=== PATIENT | male | born 1955 | race Caucasian/White ===

== ENCOUNTER 2019-02-01 09:08 | Inpatient (IN) ==
--- OUTSIDE RECORDS SUMMARY | 2019-02-01 09:10 | External Medical Summary | Continuity of Care Document ---
:1955 Author Name Chon Elizabeth, Provider Address Unavailable Unavailable , Care Team Providers Name Role Phone Robert Mallory PA-C Unavailable [email or web address] NIKA Elizabeth Unavailable Unavailable FARHANA Unavailable Unavailable Unavailable Unavailable Unavailable Problems Hyponatremia (276.1) (E87.1) TAYO (acute kidney injury) (584.9) (N17.9) HTN (hypertension) (401.9) (I10) Dilated cardiomyopathy (425.4) (I42.0) Chronic combined systolic and diastolic congestive heart failure (428.42) (I50.42) A-fib (427.31) (I48.91) Hyperkalemia (276.7) (E87.5) Allergies and Adverse Reactions No Known Drug Allergies (Allergy) Medications Aspirin 81 MG Oral Tablet Delayed Release; TAKE 1 TABLET RACHID LY. Start: 30-Oct-2016 Refills: 0 Eliquis 5 MG Oral Tablet; TAKE 1 TABLET TWICE DAILY. Clara Bragg Start: 30-Oct-2016 Quantity: 180 Refills: 3 Procedures Procedures not documented Immunizations Immunizations not documented Social History - Smoking Status Current every day smoker Plan of Treatment Planned Observations Planned Goals not documented Results No Known Results Results not documented Encounters Appointment; Lasha Bragg M.D. 18-Mar-2018 11:45 Encounter Diagnosis: Problem not documented Appointment; Lasha Bragg M.D. 22-Jul-2017 10:15 Encounter Diagnosis: Problem not documented Appointment; Lasha Bragg M.D. 17-Jun-2017 10:00 Encounter Diagnosis: Problem not documented Appointment; Lasha Bragg M.D. 01-Jun-2017 10:00 Encounter Diagnosis: Problem not documented Appointment; Echo/Stress, Echo/Stress 18-May-2017 8:45 Encounter Diagnosis: Problem not documented
[2019-02-01] MEDS ORDERED: dilTIAZem HCl 5 MG/ML 5 ML VIAL IV STA ×4 (09:33→17:14)
[2019-02-01 09:43] LABS: Basophils # (auto) 0.02 K/uL (0-0.2); Basophils % (auto) 0.3 %; Eosinophils # (auto) 0.01 K/uL (0-0.5); Eosinophils % (auto) 0.2 %; Hematocrit (blood only) 50.1 % (42-52); Hemoglobin 16.8 g/dL (14.0-18.0); Lymphocytes % (auto) 23.6 %; Mean Corpuscular Hemoglobin 27.4 pg (25-34); Mean Corpuscular Hgb Conc 33.5 g/dL (32-36); Mean Corpuscular Volume 81.7 fL (80-100); Mean Platelet Volume 11.9 fL (7.4-10.4); Monocytes # (auto) 0.68 K/uL (0.11-0.59); Monocytes % (auto) 11.5 %; Neutrophils # (auto) 3.81 K/uL (1.4-6.5); Neutrophils % (auto) 64.4 %; Platelet Count 184 K/uL (130-400); RDW Standard Deviation 49.8 fL (36.4-46.3); Red Blood Count 6.13 M/uL (4.7-6.1); White Blood Count 5.92 K/uL (4.8-10.8)
[2019-02-01 09:58] LABS: Albumin Level 4.1 gm/dl (3.4-5.0); BUN Creatinine Ratio 15.7 (10-20); Calcium 9.4 mg/dl (8.5-10.1); Creatinine Clr Calc Pharmacy 77.1 ml/min; Est GFR (African American) 75.4; Magnesium 2.3 mg/dl (1.8-2.4); Potassium 3.8 mmol/L (3.5-5.1)
--- NOTE | 2019-02-01 09:58 | XRay Report ---
SINGLE VIEW CHEST CLINICAL HISTORY: Generalized weakness. FINDINGS: An AP, portable, upright chest radiograph is obtained. No prior studies are available for c omparison at the time of dictation. The examination is degraded by portable technique and patient rot ation. The heart is enlarged noting atherosclerotic calcification of the thoracic aorta. There is mil d pulmonary vascular congestion. Trace pleural effusions are suspected and there is bibasilar atelect asis. No pneumothorax is seen. The skeletal structures are osteopenic. The bony thorax is grossly int act. IMPRESSION: 1. Cardiomegaly with evidence of mild congestive failure. 2. Suspect trace pleural effusions. Electronically signed by: Jose Burrows M.D. 02/01/2019 9:57 AM
[2019-02-01 09:59] LABS: INR 1.2 (0.9-1.1); Partial Thromboplastin Ratio 1.1; Prothrombin Time 12.5 Seconds (9.0-12.0)
--- NOTE | 2019-02-01 10:07 | Emergency Department Note ---
Entered by Leonel Jordan acting as a scribe for History of Present Illness General Chief complaint: Cardiac Assessment Stated complaint: AFIB Source: patient History of Present Illness Provider complaint: Cardiac assessment Onset (ago): hour(s) (Just prior to arrival) Location: chest Severity: similar to prior episodes Pain Consistency: + constant Maximum Pain Intensity: 0 Relieved By: + none Exacerbated By: + other (Lying flat) Associated symptoms: + shortness of breath; no chest pain and no nausea/vomiting The patient is a 63 year old male who presents to the Emergency Room after being referred here by Dr. Sidhu for a cardiac workup following a visit in his office this morning where the patient showed constant Afib on the monitor. The patient states he originally went to see Dr. Sidhu because he could feel himself retaining fluid, which has happened in the past. The patient has a history of Afib but does not take any medications because of the way they make him feel. The patient is supposed to be on Eliquis and Metoprolol. The patient currently denies any chest pain, nausea or vomiting but does endorse shortness of breath, especially when he is lying flat. The patient does take Aspirin daily. He does not use alcohol but does smoke two packs per day. Home Medications Home Medications Medication Instructions Recorded Confirmed Type aspirin [Aspirin Childrens] 81 mg PO DAILY 02/01/19 02/01/19 History Allergies Allergy/AdvReac Type Severity Reaction Status Date / Time No Known Allergies Allergy Unverified 02/01/19 10:03 Past Med/Surg History Medical History Atrial fibrillation Family History Other Family history non-contributory Social History Preferred Language: Malian Communication Ability: Effective Email Producer Required: No Beliefs That Will Affect Care: None Current Living Situation: Spouse Feels Safe at Home: Yes Smoking Status: Heavy tobacco smoker Tobacco Type: cigarettes ; Cigarettes Per Day: 40 ; Second Hand Exposure: No ; Hx Alcohol Use: No Hx Substance Use: No Review of Systems See HPI for pertinent positives & negatives. and A total of 10 systems reviewed and were otherwise negative Physical Exam Vital Signs Vital Signs - 24 hr 02/01/19 09:08 02/01/19 09:11 02/01/19 09:30 Temperature 36.5 C Temperature Source Oral Sepsis Recent Fever Within 48 Hours No Sepsis New/Unexplained Change in Mental Status No Sepsis Action Taken by Nursing No Action Required Pulse Rate 169 H 148 H Pulse Rate [Apical] Pulse Rate from SpO2 Sensor Pulse Rhythm [Apical] Respiratory Rate 18 26 H Respiratory Effort / Characteristics Respiratory Depth Normal Respiratory Pattern Regular Blood Pressure 173/104 H Blood Pressure [Left Arm] Blood Pressure Mean 127 Blood Pressure Mean [Left Arm] Blood Pressure Position Sitting Blood Pressure Position [Left Arm] Pulse Oximetry 97 97 Oxygen Delivery Method Room Air Room Air 02/01/19 09:33 02/01/19 09:37 02/01/19 09:45 Temperature Temperature Source Sepsis Recent Fever Within 48 Hours Sepsis New/Unexplained Change in Mental Status Sepsis Action Taken by Nursing Pulse Rate 157 H 129 H Pulse Rate [Apical] 147 H Pulse Rate from SpO2 Sensor 155 H 128 H Pulse Rhythm [Apical] Respiratory Rate 23 27 H Respiratory Effort / Characteristics Respiratory Depth Respiratory Pattern Blood Pressure 176/122 H Blood Pressure [Left Arm] 176/122 H Blood Pressure Mean 140 Blood Pressure Mean [Left Arm] 140 Blood Pressure Position Blood Pressure Position [Left Arm] Pulse Oximetry 98 98 95 Oxygen Delivery Method Room Air 02/01/19 09:53 02/01/19 10:00 02/01/19 10:15 Temperature Temperature Source Sepsis Recent Fever Within 48 Hours Sepsis New/Unexplained Change in Mental Status Sepsis Action Taken by Nursing Pulse Rate 117 H 108 H 117 H Pulse Rate [Apical] 114 H Pulse Rate from SpO2 Sensor 122 H 105 H 122 H Pulse Rhythm [Apical] Respiratory Rate 37 H 23 21 Respiratory Effort / Characteristics Respiratory Depth Respiratory Pattern Blood Pressure 170/125 H 182/135 H 174/139 H Blood Pressure [Left Arm] 170/125 H Blood Pressure Mean 140 150 150 Blood Pressure Mean [Left Arm] 140 Blood Pressure Position Blood Pressure Position [Left Arm] Pulse Oximetry 96 96 91 Oxygen Delivery Method Room Air 02/01/19 10:30 02/01/19 10:34 02/01/19 10:45 Temperature Temperature Source Sepsis Recent Fever Within 48 Hours Sepsis New/Unexplained Change in Mental Status Sepsis Action Taken by Nursing Pulse Rate 102 H Pulse Rate [Apical] 115 H Pulse Rate from SpO2 Sensor 104 H 110 H Pulse Rhythm [Apical] Respiratory Rate 16 16 Respiratory Effort / Characteristics Respiratory Depth Respiratory Pattern Blood Pressure 174/137 H Blood Pressure [Left Arm] 174/137 H Blood Pressure Mean 149 Blood Pressure Mean [Left Arm] 149 Blood Pressure Position Blood Pressure Position [Left Arm] Pulse Oximetry 91 96 94 Oxygen Delivery Method Room Air 02/01/19 10:46 02/01/19 11:11 02/01/19 11:15 Temperature Temperature Source Sepsis Recent Fever Within 48 Hours Sepsis New/Unexplained Change in Mental Status Sepsis Action Taken by Nursing Pulse Rate 99 H Pulse Rate [Apical] Pulse Rate from SpO2 Sensor 98 H 127 H 110 H Pulse Rhythm [Apical] Respiratory Rate 20 Respiratory Effort / Characteristics Respiratory Depth Respiratory Pattern Blood Pressure 160/126 H 96/87 L Blood Pressure [Left Arm] Blood Pressure Mean 137 90 Blood Pressure Mean [Left Arm] Blood Pressure Position Blood Pressure Position [Left Arm] Pulse Oximetry 95 93 96 Oxygen Delivery Method 02/01/19 11:16 02/01/19 11:24 02/01/19 11:30 Temperature Temperature Source Sepsis Recent Fever Within 48 Hours Sepsis New/Unexplained Change in Mental Status Sepsis Action Taken by Nursing Pulse Rate 112 H 95 H Pulse Rate [Apical] Pulse Rate from SpO2 Sensor 106 H 114 H 95 H Pulse Rhythm [Apical] Respiratory Rate 32 H 28 H Respiratory Effort / Characteristics Respiratory Depth Respiratory Pattern Blood Pressure 115/101 H 157/102 H 152/107 H Blood Pressure [Left Arm] Blood Pressure Mean 105 120 122 Blood Pressure Mean [Left Arm] Blood Pressure Position Blood Pressure Position [Left Arm] Pulse Oximetry 94 94 91 Oxygen Delivery Method 02/01/19 11:45 02/01/19 12:00 02/01/19 12:01 Temperature Temperature Source Sepsis Recent Fever Within 48 Hours Sepsis New/Unexplained Change in Mental Status Sepsis Action Taken by Nursing Pulse Rate 106 H 117 H 112 H Pulse Rate [Apical] 106 H Pulse Rate from SpO2 Sensor 105 H 114 H 113 H Pulse Rhythm [Apical] Irregular Respiratory Rate 21 25 H 23 Respiratory Effort / Characteristics Non-Labored Respiratory Depth Normal Respiratory Pattern Regular Blood Pressure 163/113 H 158/91 H Blood Pressure [Left Arm] 158/91 H Blood Pressure Mean 129 113 Blood Pressure Mean [Left Arm] 113 Blood Pressure Position Blood Pressure Position [Left Arm] Sitting Pulse Oximetry 87 L 94 94 Oxygen Delivery Method Room Air 02/01/19 12:15 02/01/19 12:30 02/01/19 12:31 Temperature Temperature Source Sepsis Recent Fever Within 48 Hours Sepsis New/Unexplained Change in Mental Status Sepsis Action Taken by Nursing Pulse Rate 109 H 104 H 111 H Pulse Rate [Apical] Pulse Rate from SpO2 Sensor 106 H 103 H 117 H Pulse Rhythm [Apical] Respiratory Rate 25 H 21 20 Respiratory Effort / Characteristics Respiratory Depth Respiratory Pattern Blood Pressure 150/128 H 141/110 H Blood Pressure [Left Arm] Blood Pressure Mean 135 120 Blood Pressure Mean [Left Arm] Blood Pressure Position Blood Pressure Position [Left Arm] Pulse Oximetry 97 95 93 Oxygen Delivery Method 02/01/19 12:45 02/01/19 13:00 02/01/19 13:15 Temperature Temperature Source Sepsis Recent Fever Within 48 Hours Sepsis New/Unexplained Change in Mental Status Sepsis Action Taken by Nursing Pulse Rate 120 H Pulse Rate [Apical] Pulse Rate from SpO2 Sensor 119 H 117 H 122 H Pulse Rhythm [Apical] Respiratory Rate 21 27 H 26 H Respiratory Effort / Characteristics Respiratory Depth Respiratory Pattern Blood Pressure 154/99 H 171/116 H Blood Pressure [Left Arm] Blood Pressure Mean 117 134 Blood Pressure Mean [Left Arm] Blood Pressure Position Blood Pressure Position [Left Arm] Pulse Oximetry 96 93 94 Oxygen Delivery Method 02/01/19 13:30 02/01/19 13:45 02/01/19 14:00 Temperature Temperature Source Sepsis Recent Fever Within 48 Hours Sepsis New/Unexplained Change in Mental Status Sepsis Action Taken by Nursing Pulse Rate 106 H 115 H 105 H Pulse Rate [Apical] 112 H Pulse Rate from SpO2 Sensor 109 H Pulse Rhythm [Apical] Respiratory Rate 22 17 29 H Respiratory Effort / Characteristics Respiratory Depth Respiratory Pattern Blood Pressure Blood Pressure [Left Arm] 178/130 H Blood Pressure Mean Blood Pressure Mean [Left Arm] 146 Blood Pressure Position Blood Pressure Position [Left Arm] Pulse Oximetry 92 97 Oxygen Delivery Method Room Air 02/01/19 14:15 02/01/19 14:17 02/01/19 14:22 Temperature Temperature Source Sepsis Recent Fever Within 48 Hours Sepsis New/Unexplained Change in Mental Status Sepsis Action Taken by Nursing Pulse Rate 136 H 137 H 118 H Pulse Rate [Apical] Pulse Rate from SpO2 Sensor Pulse Rhythm [Apical] Respiratory Rate 19 30 H 17 Respiratory Effort / Characteristics Respiratory Depth Respiratory Pattern Blood Pressure 78/59 L Blood Pressure [Left Arm] Blood Pressure Mean 65 71 Blood Pressure Mean [Left Arm] Blood Pressure Position Blood Pressure Position [Left Arm] Pulse Oximetry Oxygen Delivery Method 02/01/19 14:23 02/01/19 14:30 02/01/19 14:45 Temperature Temperature Source Sepsis Recent Fever Within 48 Hours Sepsis New/Unexplained Change in Mental Status Sepsis Action Taken by Nursing Pulse Rate 113 H 115 H 112 H Pulse Rate [Apical] Pulse Rate from SpO2 Sensor Pulse Rhythm [Apical] Respiratory Rate 18 14 27 H Respiratory Effort / Characteristics Respiratory Depth Respiratory Pattern Blood Pressure 178/134 H Blood Pressure [Left Arm] Blood Pressure Mean 148 Blood Pressure Mean [Left Arm] Blood Pressure Position Blood Pressure Position [Left Arm] Pulse Oximetry Oxygen Delivery Method GENERAL: Patient is awake alert in no acute distress patient is resting comfortably and showing no signs of anxiety EYES: The conjunctivae are clear. The pupils are round and reactive. EARS, NOSE, MOUTH AND THROAT: The nose is without any evidence of any deformity. Mucous membranes are moist tongue is midline NECK: The neck is nontender and supple. RESPIRATORY: Normal respiratory effort is noted there is no evidence of wheezing rhonchi or rales CARDIOVASCULAR: Tachycardic and irregular rhythm was noted. No definite murmur was noted. GASTROINTESTINAL: The abdomen is soft. Bowel sounds are present in all quadrants. Abdomen is nontender PELVIS: The Pelvis is stable. No tenderness to palpation is noted. BACK: No midline tenderness or or step-off noted range of motion in flexion extension as well as rotation no signs of muscle spasm noted MUSCULOSKELETAL/EXTREMITIES: There is no evidence of gross deformity full range of motion is noted in the hips and shoulders SKIN: There is no obvious evidence of any rash. Pedal edema was noted bilaterally. NEUROLOGIC: Patient is awake alert and oriented x3. Course 0931: Past medical records reviewed. The patient was evaluated in room B09, and a complete history and physical examination were performed. 1132: I reevaluated the patient and updated him on results. We also discussed the treatment plan and he is in agreement with the plan. 1233: I spoke to Dr. Luis Angel Baker [facility] Hospitalist about the patient's case. She is going to accept the patient for further evaluation. Consultations Consultation #1: I spoke to Dr. Luis Angel Baker [facility] Hospitalist about the patient's case. She is going to accept the patient for further evaluation. Time: 12:33 Administered Medications Heparin Sodium/Dextrose (Heparin Sodium/Dextrose) 25,000 units in 500 mls @ 28 mls/hr IV .[id number] NINOSKA; Protocol Stop: 03/03/19 13:59 Last Titration: 02/01/19 21:00 Dose: 1,400 units/hr, 28 mls/hr Documented by: [id number] Cosigned by: [id number] Titration: 02/01/19 20:30 Dose: 0 units/hr, 0 mls/hr Documented by: [id number] Cosigned by: [id number] Titration: 02/01/19 19:14 Dose: 1,550 units/hr, 31 mls/hr Documented by: [id number] Cosigned by: [id number] Admin: 02/01/19 14:03 Dose: 1,550 units/hr, 31 mls/hr Documented by: [id number] Cosigned by: [id number] Diltiazem HCl 125 mg/ Dextrose 125 mls @ 5 mls/hr IV .Q24H NINOSKA; Protocol Stop: 03/03/19 14:44 Last Titration: 02/01/19 19:14 Dose: 5 mg/hr, 5 mls/hr Documented by: [id number] Cosigned by: [id number] Admin: 02/01/19 15:43 Dose: 5 mg/hr, 5 mls/hr Documented by: [id number] Cosigned by: [id number] Furosemide 100 mg/ Dextrose 100 mls @ 2 mls/hr IV .Q24H NINOSKA Stop: 03/03/19 17:44 Last Infusion: 02/01/19 19:14 Dose: 2 mg/hr, 2 mls/hr Documented by: [id number] Admin: 02/01/19 18:42 Dose: 2 mg/hr, 2 mls/hr Documented by: [id number] Methylprednisolone 40 mg/ (Syringe) 0.64 mls @ 1.5 mls/min IV BID NINOSKA Stop: 02/02/19 21:01 Last Admin: 02/01/19 21:24 Dose: 1.5 mls/min Documented by: [id number] Ceftriaxone Sodium 2,000 mg/ (Dextrose) 70 mls @ 100 mls/hr IV Q24H NINOSKA; Protocol Stop: 02/08/19 18:29 Last Infusion: 02/01/19 19:52 Dose: 0 mls/hr Documented by: [id number] Admin: 02/01/19 18:42 Dose: 100 mls/hr Documented by: [id number] Doxycycline Hyclate 100 mg/ (Dextrose) 110 mls @ 50 mls/hr IV BID NINOSKA Stop: 02/08/19 20:59 Last Infusion: 02/01/19 23:44 Dose: 0 mls/hr Documented by: [id number] Admin: 02/01/19 21:24 Dose: 50 mls/hr Documented by: [id number] Miscellaneous (Remove Nicoderm Patch) 1 ea N/A HS NINOSKA Stop: 03/03/19 20:59 Last Admin: 02/02/19 00:30 Dose: 1 ea Documented by: [id number] Fluticasone/Salmeterol (Advair Diskus 250/50) 1 puffs INH BID NINOSKA Stop: 03/03/19 20:59 Last Admin: 02/01/19 21:24 Dose: 1 puffs Documented by: [id number] Discontinued Medications Diltiazem HCl (Cardizem) 10 mg IV NOW STA Stop: 02/01/19 09:34 Last Admin: 02/01/19 09:38 Dose: 10 mg Documented by: [id number] Cosigned by: [id number] Diltiazem HCl (Cardizem) 10 mg IV NOW STA Stop: 02/01/19 10:24 Last Admin: 02/01/19 10:35 Dose: 10 mg Documented by: [id number] Cosigned by: [id number] Diltiazem HCl (Cardizem) 10 mg IV NOW STA Stop: 02/01/19 15:02 Last Admin: 02/01/19 15:43 Dose: 10 mg Documented by: [id number] Cosigned by: [id number] Diltiazem HCl (Cardizem) 1 mg IV NOW STA Stop: 02/01/19 17:15 Last Admin: 02/01/19 23:49 Dose: Not Given Documented by: [id number] Heparin Sodium (Porcine) (Heparin Iv Bolus) 7,000 units IV NOW STA Stop: 02/01/19 13:49 Last Admin: 02/01/19 14:03 Dose: 7,000 units Documented by: [id number] Cosigned by: [id number] Sodium Chloride (Nss 1000ml) 1,000 mls @ 999 mls/hr IV .Q1H1M NINOSKA Stop: 02/01/19 11:45 Last Infusion: 02/01/19 11:12 Dose: 0 mls/hr Documented by: [id number] Admin: 02/01/19 10:52 Dose: 999 mls/hr Documented by: [id number] Ketorolac Tromethamine (Toradol) 10 mg IV NOW STA Stop: 02/01/19 10:40 Last Admin: 02/01/19 10:53 Dose: 10 mg Documented by: [id number] Nicotine (Nicoderm Cq) 21 mg TD QAM [facility] Stop: 03/03/19 10:39 Last Admin: 02/01/19 10:53 Dose: 21 mg Documented by: [id number] Ondansetron HCl (Zofran) 4 mg IV NOW STA Stop: 02/01/19 10:40 Last Admin: 02/01/19 10:54 Dose: 4 mg Documented by: [id number] Medical Decision Making Differential Diagnosis Differential: NSR, SVT, PACs, PVCs, Cardiac Dysrhythmia, Endocrine Dysfunction, Eletrolyte/Metabolic Abnormality, Pulmonary Embolism, Infectious, GI, amongst other pathologies entertained. Medical Records Attestation: I reviewed the patient's medical records. Home Medications Current Medication List: was personally reviewed by me Laboratory Data Attestation: I reviewed the patient's lab results. Result diagrams: 02/02/19 03:02 02/02/19 03:02 Lab Results 02/01/19 02/01/19 02/01/19 Range/Units 09:35 09:35 09:35 WBC 5.92 (4.8-10.8) K/uL RBC 6.13 H (4.7-6.1) M/uL Hgb 16.8 (14.0-18.0) g/dL Hct 50.1 (42-52) % MCV 81.7 (80-100) fL MCH 27.4 (25-34) pg MCHC 33.5 (32-36) g/dL RDW Std Deviation 49.8 H (36.4-46.3) fL RDW Coeff of Jonas 17.0 H (11.5-14.5) % Plt Count 184 (130-400) K/uL MPV 11.9 H (7.4-10.4) fL Immature Gran % (Auto) 0.0 % Neut % (Auto) 64.4 % Lymph % (Auto) 23.6 % Walton % (Auto) 11.5 % Eos % (Auto) 0.2 % Baso % (Auto) 0.3 % Immature Gran # (Auto) 0.00 (0.00-0.02) K/uL Neut # (Auto) 3.81 (1.4-6.5) K/uL Lymph # (Auto) 1.40 (1.2-3.4) K/uL Walton # (Auto) 0.68 H (0.11-0.59) K/uL Eos # (Auto) 0.01 (0-0.5) K/uL Baso # (Auto) 0.02 (0-0.2) K/uL PT 12.5 H (9.0-12.0) Seconds INR 1.2 H (0.9-1.1) APTT 31.0 (21.0-31.0) Seconds PTT Ratio 1.1 Sodium 136 (136-145) mmol/L Potassium 3.8 (3.5-5.1) mmol/L Chloride 102 (98-107) mmol/L Carbon Dioxide 23 (21-32) mmol/L Anion Gap 11.0 (3-11) BUN 18 (7-18) mg/dl Creatinine 1.17 (0.6-1.4) mg/dl Est Cr Clr Drug Dosing 77.1 ml/min Est GFR ( Amer) 75.4 Est GFR (Non-Af Amer) 65.0 BUN/Creatinine Ratio 15.7 (10-20) Glucose 111 H (70-99) mg/dl Calcium 9.4 (8.5-10.1) mg/dl Magnesium 2.3 (1.8-2.4) mg/dl Total Bilirubin 1.2 H (0.2-1) mg/dl AST 26 (15-37) U/L ALT 21 (12-78) U/L Alkaline Phosphatase 133 H (45-117) U/L Troponin I 0.062 H* (0-0.045) ng/ml NT-Pro-B Natriuret Pep (0-900) pg/ml Total Protein 7.4 (6.4-8.2) gm/dl Albumin 4.1 (3.4-5.0) gm/dl Globulin 3.3 (2.5-4.0) gm/dl Albumin/Globulin Ratio 1.2 (0.9-2) TSH 1.150 (0.300-4.500) uIu/ml Urine Color Urine Appearance (Clear) Urine pH (4.5-7.5) Ur Specific [place] (1.000-1.030) Urine Protein (Negative) Urine Glucose (UA) (Negative) Urine Ketones (Negative) Urine Blood (Negative) Urine Nitrite (Negative) Urine Bilirubin (Negative) Urine Urobilinogen (Negative) Ur Leukocyte Esterase (Negative) 02/01/19 02/01/19 Range/Units 09:35 12:10 WBC (4.8-10.8) K/uL RBC (4.7-6.1) M/uL Hgb (14.0-18.0) g/dL Hct (42-52) % MCV (80-100) fL MCH (25-34) pg MCHC (32-36) g/dL RDW Std Deviation (36.4-46.3) fL RDW Coeff of Jonas (11.5-14.5) % Plt Count (130-400) K/uL MPV (7.4-10.4) fL Immature Gran % (Auto) % Neut % (Auto) % Lymph % (Auto) % Walton % (Auto) % Eos % (Auto) % Baso % (Auto) % Immature Gran # (Auto) (0.00-0.02) K/uL Neut # (Auto) (1.4-6.5) K/uL Lymph # (Auto) (1.2-3.4) K/uL Walton # (Auto) (0.11-0.59) K/uL Eos # (Auto) (0-0.5) K/uL Baso # (Auto) (0-0.2) K/uL PT (9.0-12.0) Seconds INR (0.9-1.1) APTT (21.0-31.0) Seconds PTT Ratio Sodium (136-145) mmol/L Potassium (3.5-5.1) mmol/L Chloride (98-107) mmol/L Carbon Dioxide (21-32) mmol/L Anion Gap (3-11) BUN (7-18) mg/dl Creatinine (0.6-1.4) mg/dl Est Cr Clr Drug Dosing ml/min Est GFR ( Amer) Est GFR (Non-Af Amer) BUN/Creatinine Ratio (10-20) Glucose (70-99) mg/dl Calcium (8.5-10.1) mg/dl Magnesium (1.8-2.4) mg/dl Total Bilirubin (0.2-1) mg/dl AST (15-37) U/L ALT (12-78) U/L Alkaline Phosphatase (45-117) U/L Troponin I (0-0.045) ng/ml NT-Pro-B Natriuret Pep 09543 H (0-900) pg/ml Total Protein (6.4-8.2) gm/dl Albumin (3.4-5.0) gm/dl Globulin (2.5-4.0) gm/dl Albumin/Globulin Ratio (0.9-2) TSH 1.110 (0.300-4.500) uIu/ml Urine Color Yellow Urine Appearance Clear (Clear) Urine pH 5.5 (4.5-7.5) Ur Specific [place] 1.015 (1.000-1.030) Urine Protein Trace H (Negative) Urine Glucose (UA) Negative (Negative) Urine Ketones Negative (Negative) Urine Blood Trace H (Negative) Urine Nitrite Negative (Negative) Urine Bilirubin Negative (Negative) Urine Urobilinogen Negative (Negative) Ur Leukocyte Esterase Negative (Negative) Imaging Data Radiologist's Impression: Radiology results as stated below per my review and the radiologist's interpretation: SINGLE VIEW CHEST CLINICAL HISTORY: Generalized weakness. FINDINGS: An AP, portable, upright chest radiograph is obtained. No prior studies are available for comparison at the time of dictation. The examination is degraded by portable technique and patient rotation. The heart is enlarged noting atherosclerotic calcification of the thoracic aorta. There is mild pulmonary vascular congestion. Trace pleural effusions are suspected and there is bibasilar atelectasis. No pneumothorax is seen. The skeletal structures are osteopenic. The bony thorax is grossly intact. IMPRESSION: 1. Cardiomegaly with evidence of mild congestive failure. 2. Suspect trace pleural effusions. Electronically signed by: Jose Burrows M.D. 02/01/2019 9:[address] SCAN OF THE ABDOMEN AND PELVIS WITHOUT CONTRAST CLINICAL HISTORY: Flank pain COMPARISON STUDY: No previous studies for comparison. TECHNIQUE: CT scan of the abdomen and pelvis was performed from the lung bases to the proximal femurs. Images are reviewed in the axial, sagittal, and coronal planes. IV contrast was not administered for this examination. A dose lowering technique was utilized adhering to the principles of ALARA. CT DOSE: 810.99 mGy.cm FINDINGS: Lower chest: The heart is enlarged. There is a small right pleural effusion. There is mild subpleural reticulation. There are right lower lobe nodular airspace opacities. Although likely inflammatory, radiographic follow-up will be necessary to exclude underlying neoplasm. Liver: The unenhanced liver is normal in size, contour, and attenuation. There is no intrahepatic biliary ductal dilatation. Gallbladder: No gallstones are visualized. There is minimal everett hepatis and pericholecystic edema of questioned clinical significance. Spleen: Normal in size and attenuation. Pancreas: Unremarkable. Adrenal glands: There is minor infiltration of the fat stranding the left adrenal gland. No focal masses visualized Kidneys: There is no hydronephrosis. No renal, ureteral, or bladder calculi are visualized. There are bilateral vascular calcifications. Bowel: There are no transition zones to indicate bowel obstruction. There is no evidence of acute diverticulitis. There are scattered colonic diverticula present. There is no evidence of acute appendicitis. Peritoneum: There is no intraperitoneal free air or abdominal ascites. There is a left inguinal hernia containing predominantly fat but also a portion of a left colonic diverticulum Vasculature: The abdominal aorta is normal in course and caliber. Adenopathy: None. Pelvic viscera: There is moderate bladder wall thickening. Skeletal structures: No destructive osseous lesions are seen. IMPRESSION: 1. No renal, ureteral, or bladder calculi identified 2. Diverticulosis. No evidence of acute diverticulitis 3. No evidence of acute appendicitis 4. Left inguinal hernia containing fat and a portion of a colonic diverticulum 5. Minimal nonspecific pericholecystic edema and minimal edema within the everett hepatis. 6. Small right pleural effusion. Nodular right lower lobe pulmonary opacities. While likely infectious/inflammatory, short-term follow-up will be necessary to document resolution and exclude underlying neoplasm Electronically signed by: Justin Au M.D. 02/01/2019 11:18 AM ECG Data Attestation: I personally reviewed and interpreted this ECG as follows: Indication: palpitations Rate (beats per minute): 142 Rhythm: atrial fibrillation Findings: + other (LVH via voltage criteria ) and + ST depression (Diffusely); no PVC Blood Pressure Blood Pressure Findings: Elevated blood pressure Blood Pressure Disposition: further management by hospitalist MDM Narrative The patient is a 63-year-old male who presented to the emergency department for an evaluation of palpitations. The patient was complaining of chest pain as well as palpitations. He was seen at his primary care physician's office and noted to be in rapid atrial fibrillation. The patient was sent to the emergency department for further evaluation. I discussed the patient's laboratory and radiographic studies with him. He was treated with multiple doses of IV Cardizem. On subsequent reevaluation was feeling much better. His pulse rate improved. His blood pressure improved. He was found to have a mild elevation in his troponin. I discussed his case with the on-call [facility] hospitalist group. They have agreed to evaluate the patient in the emergency department for further management disposition. At this time anticoagulation bernadette l be delayed until the evaluation by the hospitalist team can be done. The patient was reevaluated multiple times. The patient also had a CAT scan of his abdomen and pelvis. He did complain of some abdominal pain however this was entered in error because of the mistake with tape recorder mechanic. Impression & Plan Atrial fibrillation with RVR, Chest pain Critical Care Time Critical Care Time: Yes Total Critical Care Time: 60 I have personally spent greater than 60 minutes of critical care time in the direct management of this patient. This includes bedside care, interpretation of diagnostic studies, and testing, discussion with consultants, patient, and family members, and other required patient management activities. This 60 minutes is in excess of all separately billable procedures. Discharge Plan Visit Data *Final* Discharge Date/Time: 02/01/19 17:14 Chief Complaint: Cardiac Assessment Stated Complaint: AFIB ED Provider: Lasha Wilkerson Discharge Problem: Atrial fibrillation with RVR, Chest pain Patient Disposition: Admitted As Inpatient Discharge Instructions Interventions: ED Discharge Assessment Last Done: 02/01/19 17:14 Discharge Problem: Chest pain Qualifiers: Chest pain type: unspecified Qualified Code(s): R07.9 - Chest pain, unspecified The scribe's documentation has been prepared under my direction and personally reviewed by me in its entirety. I confirm that the note above accurately reflects all work, treatment, procedures, and medical decision making performed by me.
[2019-02-01 10:14] LABS: Albumin Globulin Ratio 1.2 (0.9-2); Bilirubin,Total 1.2 mg/dl (0.2-1); Globulin 3.3 gm/dl (2.5-4.0); Thyroid Stimulating Hormone 1.15 uIu/ml (0.300-4.500); Total Protein 7.4 gm/dl (6.4-8.2); Troponin I 0.062 ng/ml (0-0.045)
[2019-02-01] MEDS ORDERED: KETOROLAC TROMETHAMINE 15 MG/ML VIAL IV STA (10:39)
[2019-02-01] MEDS ORDERED: MoRPHine SULFATE 4 MG/ML 1 ML CARP\\VIAL IV PRN (10:39)
[2019-02-01] MEDS ORDERED: ONDANSETRON INJ 2 MG/ML 2 ML VIAL IV STA (10:39)
[2019-02-01] MEDS ORDERED: NICOTINE 21 MG/24 HR TDSY TD SCH (10:40)
[2019-02-01] MEDS ORDERED: SODIUM CHLORIDE 0.9% 1000ML 1,000 ML IV SCH (10:45)
--- NOTE | 2019-02-01 11:20 | CT Scan Report ---
CT SCAN OF THE ABDOMEN AND PELVIS WITHOUT CONTRAST CLINICAL HISTORY: Flank pain COMPARISON STUDY: No previous studies for comparison. TECHNIQUE: CT scan of the abdomen and pelvis was performed from the lung bases to the proximal femurs . Images are reviewed in the axial, sagittal, and coronal planes. IV contrast was not administered fo r this examination. A dose lowering technique was utilized adhering to the principles of ALARA. CT DOSE: 810.99 mGy.cm FINDINGS: Lower chest: The heart is enlarged. There is a small right pleural effusion. There is mild subpleural reticulation. There are right lower lobe nodular airspace opacities. Although likely inflammatory, r adiographic follow-up will be necessary to exclude underlying neoplasm. Liver: The unenhanced liver is normal in size, contour, and attenuation. There is no intrahepatic tarah iary ductal dilatation. Gallbladder: No gallstones are visualized. There is minimal everett hepatis and pericholecystic edema o f questioned clinical significance. Spleen: Normal in size and attenuation. Pancreas: Unremarkable. Adrenal glands: There is minor infiltration of the fat stranding the left adrenal gland. No focal mas ses visualized Kidneys: There is no hydronephrosis. No renal, ureteral, or bladder calculi are visualized. There are bilateral vascular calcifications. Bowel: There are no transition zones to indicate bowel obstruction. There is no evidence of acute div erticulitis. There are scattered colonic diverticula present. There is no evidence of acute appendici tis. Peritoneum: There is no intraperitoneal free air or abdominal ascites. There is a left inguinal herni a containing predominantly fat but also a portion of a left colonic diverticulum Vasculature: The abdominal aorta is normal in course and caliber. Adenopathy: None. Pelvic viscera: There is moderate bladder wall thickening. Skeletal structures: No destructive osseous lesions are seen. IMPRESSION: 1. No renal, ureteral, or bladder calculi identified 2. Diverticulosis. No evidence of acute diverticulitis 3. No evidence of acute appendicitis 4. Left inguinal hernia containing fat and a portion of a colonic diverticulum 5. Minimal nonspecific pericholecystic edema and minimal edema within the everett hepatis. 6. Small right pleural effusion. Nodular right lower lobe pulmonary opacities. While likely infectiou s/inflammatory, short-term follow-up will be necessary to document resolution and exclude underlying neoplasm Electronically signed by: Justin Au M.D. 02/01/2019 11:18 AM
[2019-02-01 12:21] LABS: Appearance Urine Clear (Clear); Bilirubin Urine Negative (Negative); Blood Urine Trace (Negative); Color Urine Yellow; Glucose Urine UA Negative (Negative); Ketones Urine Negative (Negative); Leukocyte Esterase Urine Negative (Negative); Nitrite Urine Negative (Negative); Protein Urine Trace (Negative); Specific Gravity Urine 1.015 (1.000-1.030); Urobilinogen Urine Negative (Negative); pH Urine 5.5 (4.5-7.5)
[2019-02-01] MEDS ORDERED: Heparin BOLUS **ED Use Only IV STA (13:48)
[2019-02-01] MEDS: HEPARIN SODIUM/DEXTROSE 25,000 UNITS/500 ML BAG IV SCH (14:03)
[2019-02-01 14:41] LABS: Thyroid Stimulating Hormone 1.11 uIu/ml (0.300-4.500)
--- NOTE | 2019-02-01 14:58 | History & Physical Report ---
Date of Service February 01, 2019 Assessment & Plan (1) Pneumonia: Admit to PCU on telemetry Vital signs every 4 hours For pneumonia patient started on ceftriaxone and doxycycline. Consider repeating CT scan upon resolution of the infection to rule out malignancy. Breathing treatments with duo nebs 4 times daily as needed for shortness of breath, started Solu-Medrol 40 mg IV twice daily for 3 doses and taper down when these 3 doses are completed with prednisone p.o. Started advair 1 puff twice daily Follow-up blood culture and respiratory culture and adjust antibiotics as per culture sensitivity. Daily weight Strict in and out for acute exacerbation of CHF Monitor electrolytes closely and replenish Trend down BNP, check follow-up results lipid panel, A1c, TSH normal 1.110 TTE pending Consider consulting cardiology after TTE results Elevated troponin appears to be due to demand related to acute CHF and pneumonia. Will trend down troponins every 6 hours with EKG. Started Heparin bolus and drip for paroxysmal A. fib's with RVR to prevent a stroke Started diltiazem bolus and drip DVT prophylaxis patient is on heparin drip Full code Present on Admission?: Yes (2) Acute exacerbation of CHF (congestive heart failure): See above Present on Admission?: Yes (3) Nicotine dependence: Offered nicotine patch. Patient agreed to quit smoking. Patient accepted patch Present on Admission?: Yes (4) Atrial fibrillation with RVR: See above (5) Elevated troponin: Trend down troponin as already discussed. Appears to be due to high demand A. fib's with RVR, acute exacerbation of congestive heart failure and pneumonia. Present on Admission?: Yes (6) COPD (chronic obstructive pulmonary disease): Patient appears to be in mild exacerbation. Started duo nebs 4 times daily as needed for shortness of breath. Solu-Medrol 40 mg IV twice daily for 3 doses and then taper down with prednisone P.o. Advair 1 puff twice daily Patient started on ceftriaxone and doxycycline IV. History of Present Illness With RVR Chief Complaint: Palpitations Primary Care Provider: Sonya Parkvin Patient is a 63 years old male with not significant past medical history who presents to the emergency room after being referred by Dr. Sidhu for a cardiac work-up following a visit in his office this morning where the patient showed constant A. fib's on the monitor. The patient states he originally went to see Dr. Sidhu because he felt that he is retaining fluid which has happened in the past. The patient has history of A. fib but does not take any medication because of the way they make him feel. The patient is supposed to be on Eliquis and metoprolol. The patient currently denies any chest pain nausea or vomiting but does endorse shortness of breath especially when laying flat. Patient takes one aspirin daily. Patient does not drink alcohol but smokes 2 packs/day for more than 40 years. Patient denies fever, chills, chest pain, abdominal pain, hemoptysis, hematuria, dysuria, melena, syncope, near syncope, confusion, decreased alertness. Chest x-ray shows: Cardiomegaly with evidence of mild congestive failure. Suspect trace pleural effusion. Abdomen pelvis CT shows: No renal, ureteral or bladder calculi identified. Diverticulosis. No evidence of acute diverticulitis. No evidence of acute appendicitis. Left inguinal hernia containing fat and a portion of colonic diverticulum. Minimal nonspecific battery cholecystic edema and minimal edema within the everett hepatis. Small small right pleural effusion. Nodular nodule of right lower lobe pulmonary opacities. While likely infectious inflammatory, short-term follow-up will be necessary to document resolution and exclude underlying now plasm. WBC 5.92, hemoglobin 16.8, hematocrit 50.1, platelets 184, PT 12.5, INR 1.2, APTT 31. Sodium 136, potassium 3.8, chloride 102, BUN 18, creatinine 1.17, GFR 65,No no evidence of bowel obstruction AST 26, total bili 1.2, ALT 21, alkaline phosphatase 133, troponin 0.0 62, BNP 10,423, TSH 1.1. Decision was made to admit patient to PCU on telemetry for paroxysmal A. fib's with RVR, elevated troponin on demand and to rule out acute coronary syndrome, acute exacerbation of congestive heart failure and pneumonia. Allergies Allergy/AdvReac Type Severity Reaction Status Date / Time No Known Allergies Allergy Unverified 02/01/19 10:03 Home Medications Home Medications Medication Instructions Recorded Confirmed Type aspirin [Aspirin Childrens] 81 mg PO DAILY 02/01/19 02/01/19 History Past Med/Surg History Medical History Atrial fibrillation Family History Other Family history non-contributory Social History Preferred Language: Kazakh Communication Ability: Effective Director Banking Required: No Beliefs That Will Affect Care: None Current Living Situation: Spouse Other Information That Helps Us Care for You: No Feels Safe at Home: Yes Safety Concerns: Feels Safe At This Time Smoking Status: Heavy tobacco smoker Tobacco Type: cigarettes ; Cigarettes Per Day: 40 ; Do You Dip or Chew Tobacco: No ; Second Hand Exposure: No ; Tobacco Cessation Education Requested by Patient: No Hx Alcohol Use: No Hx Substance Use: No Review of Systems Review of Systems: All systems reviewed & are unremarkable except as noted in HPI & below Physical Exam Constitutional: WD/WN, vitals as above well developed and + obese Eyes: PERRL, conjunctivae normal, anicteric sclerae ENMT: external ear and nose normal, oropharynx normal Neck: trachea midline, no thyromegaly Respiratory: Auscultation: + crackles and + wheezes Cardiovascular: Rate/Rhythm: + irregularly irregular Heart Sounds: normal S1, normal S2 and + murmur Palpation: + palpable S3 Vessels: + JVD, + bounding carotid pulses and dorsalis pedis pulses present Extremities: + pedal edema Gastrointestinal (Abdomen): normal bowel sounds, soft, nontender, no hepatosplenomegaly Musculoskeletal: no cyanosis or clubbing, extremities motor strength 5/5 Skin: no rashes, warm and dry Neurologic: patellar DTR's 2+ bilat, sensation intact Psychiatric: A+Ox3, euthymic affect Lymphatic: no cervical or axillary lymphadenopathy Results & Data Vital Signs (Past 12 Hours) Vital Signs Temp Pulse Pulse Resp BP BP Pulse Ox 02/01/19 14:00 112 H 16 178/130 H 97 02/01/19 12:00 106 H 24 158/91 H 95 02/01/19 10:34 115 H 16 174/137 H 96 02/01/19 09:53 114 H 18 170/125 H 96 02/01/19 09:37 97 02/01/19 09:33 147 H 176/122 H 98 02/01/19 09:11 36.5 C 169 H 18 173/104 H 97 02/01/19 09:08 97 Code Status & VTE Plan Code Status Full code VTE Prophylaxis Plan VTE Prophylaxis will be ordered: Yes PG Care Time/CCT Total # of Minutes Spent Total Time Spent with Patient: Total time spent is greater than 50% in coordination of care (as documented) at patient's floor/unit and/or counseling patient:
[2019-02-01] MEDS: dilTIAZem HCL 125 MG in DEXTROSE 5% 100 ML IV SCH (15:43)
[2019-02-01] MEDS ORDERED: MAGNESIUM HYDROXIDE SUSP 30 ML UDC PO PRN (17:14)
[2019-02-01] MEDS ORDERED: ZOLPIDEM TARTRATE 5 MG TAB PO PRN (17:14)
[2019-02-01] MEDS ORDERED: ALUMINUM/MAGNESIUM SUSP 30 ML UDC PO PRN (17:14)
[2019-02-01] MEDS ORDERED: POLYETHYLENE (MIRALAX) 17 GM PACK PO PRN (17:14)
[2019-02-01] MEDS ORDERED: ACETAMINOPHEN 325 MG TAB PO PRN (17:14)
[2019-02-01] MEDS ORDERED: ONDANSETRON INJ 2 MG/ML 2 ML VIAL IV PRN (17:14)
[2019-02-01] MEDS ORDERED: ALBUT/IPRATROP 3MG/0.5MG NEB 3 ML VIAL NEB PRN (17:14)
[2019-02-01] MEDS ORDERED: FUROSEMIDE 100 MG in DEXTROSE 5% 90 ML IV SCH (17:45)
[2019-02-01] MEDS ORDERED: cefTRIAXone SODIUM 2,000 MG in DEXTROSE 5% 50 ML IV SCH (18:30)
[2019-02-01 20:21] LABS: Partial Thromboplastin Ratio 3.2
[2019-02-01 20:29] LABS: Partial Thromboplastin Time 87.1 Seconds (21.0-31.0)
[2019-02-01] MEDS: FLUTICASONE/SALMETEROL 250/50 (ADVAIR) 14 PUFF/1 INHALER INH SCH (21:24)
[2019-02-01] MEDS: methylPREDNISolone 40 MG in SYRINGE 0 ML IV SCH (21:24)
[2019-02-01] MEDS: DOXYCYCLINE HYCLATE 100 MG in DEXTROSE 5% 100 ML IV SCH (21:24)
[2019-02-02 03:12] LABS: Basophils # (auto) 0.01 K/uL (0-0.2); Basophils % (auto) 0.2 %; Hematocrit (blood only) 46.5 % (42-52); Hemoglobin 15.4 g/dL (14.0-18.0); Immature Granulocytes # (auto) 0.02 K/uL (0.00-0.02); Immature Granulocytes % (auto) 0.3 %; Lymphocytes # (auto) 0.41 K/uL (1.2-3.4); Lymphocytes % (auto) 6.3 %; Mean Corpuscular Hemoglobin 27.2 pg (25-34); Mean Corpuscular Hgb Conc 33.1 g/dL (32-36); Mean Platelet Volume 11.4 fL (7.4-10.4); Monocytes # (auto) 0.08 K/uL (0.11-0.59); Monocytes % (auto) 1.2 %; Neutrophils # (auto) 5.99 K/uL (1.4-6.5); Platelet Count 175 K/uL (130-400); RDW Coefficient of Variation 16.9 % (11.5-14.5); RDW Standard Deviation 50.1 fL (36.4-46.3); Red Blood Count 5.67 M/uL (4.7-6.1); White Blood Count 6.51 K/uL (4.8-10.8)
[2019-02-02 03:30] LABS: Albumin Level 3.5 gm/dl (3.4-5.0); BUN Creatinine Ratio 13.6 (10-20); Calcium 8.5 mg/dl (8.5-10.1); Creatinine Clr Calc Pharmacy 69.9 ml/min; Est GFR (Non-African American) 57.8; Potassium 3.5 mmol/L (3.5-5.1)
[2019-02-02 03:35] LABS: Bilirubin,Total 0.9 mg/dl (0.2-1); Globulin 3.5 gm/dl (2.5-4.0)
[2019-02-02 03:48] LABS: Partial Thromboplastin Ratio 2.1
[2019-02-02 03:58] LABS: Partial Thromboplastin Time 57.4 Seconds (21.0-31.0)
[2019-02-02 07:19] LABS: Estimated Average Glucose 126 mg/dl
[2019-02-02] MEDS: HEPARIN SODIUM/DEXTROSE 25,000 UNITS/500 ML BAG IV SCH (08:31)
[2019-02-02] MEDS: DOXYCYCLINE HYCLATE 100 MG in DEXTROSE 5% 100 ML IV SCH (08:35)
[2019-02-02] MEDS: methylPREDNISolone 40 MG in SYRINGE 0 ML IV SCH (08:35)
[2019-02-02] MEDS: NICOTINE 14 MG/24 HR PATCH TD SCH (08:57)
[2019-02-02] MEDS: FLUTICASONE/SALMETEROL 250/50 (ADVAIR) 14 PUFF/1 INHALER INH SCH ×2 (08:57→20:51)
[2019-02-02] MEDS: POTASSIUM CHLORIDE 20 MEQ TABCR PO SCH (08:58)
[2019-02-02] MEDS: ASPIRIN 81 MG ECTAB PO SCH (08:58)
[2019-02-02] MEDS ORDERED: ASPIRIN CHEW 324 MG PO SCH (09:00)
[2019-02-02] MEDS: dilTIAZem HCL 125 MG in DEXTROSE 5% 100 ML IV SCH ×2 (12:44→23:06)
--- NOTE | 2019-02-02 17:10 | Hospitalist Progress Note ---
Date of Service February 02, 2019 Assessment & Plan (1) Atrial fibrillation with RVR: History of afib with RVR. Stopped his medications around August due to insurance reasons. Chads-Vasc is 5 (age, CHF, HTN, hx of CVA (per patient)). - Diltiazem gtt -> Transitioning back to oral metoprolol which he was on previously - Continue apixaban; didn't have a reaction to it; just didn't see how it was helping him. - Follow up TTE from 02/02 (2) Acute exacerbation of CHF (congestive heart failure): Due to stopping his Lasix and likely exacerbated by his afib with RVR. - Was on Lasix gtt initially -> Switch to oral Lasix tomorrow (3) Nicotine dependence: - Offered nicotine patch & patient accepted. (4) Elevated troponin: Due to demand from afibs. - Troponins trended down. - Outpatient work-up (5) COPD (chronic obstructive pulmonary disease): Not using any home inhalers as far as I can tell. - Continue DuoNebs PRN (6) DVT prophylaxis: Apixaban for afib Subjective Feeling better today. Swelling in the legs is improving. Less shortness of breath today. Review of Systems Review of Systems: All systems reviewed & are unremarkable except as noted in HPI & below Physical Exam Constitutional: WD/WN, vitals as above Eyes: EOM intact bilaterally; no conjunctival abnormality ENMT: external ear and nose normal, oropharynx normal Neck: trachea midline, no thyromegaly normal visual inspection Respiratory: normal respiratory effort, lungs clear to auscultation no respiratory distress Cardiovascular: Rate/Rhythm: + tachycardic and + irregularly irregular Heart Sounds: normal S1 and normal S2 Extremities: + edema (Trace) Gastrointestinal (Abdomen): Inspection/Auscultation: abdomen normal to inspection; abdomen not distended Musculoskeletal: no cyanosis or clubbing, extremities motor strength 5/5 Skin: no rashes, warm and dry Neurologic: moves all extremities and awake Psychiatric: Orientation: alert, oriented to person and cooperative Results & Data Vital Signs (Past 12 Hours) Vital Signs Temp Pulse Pulse Resp BP BP Pulse Ox 02/02/19 15:03 36.6 C 103 H 18 158/93 H 92 02/02/19 14:20 80 02/02/19 12:10 36.4 C L 83 18 137/94 92 02/02/19 07:30 83 02/02/19 07:01 36.4 C L 106 H 20 155/103 H 92 PG Care Time/CCT Total # of Minutes Spent Total Time Spent with Patient: Total time spent is greater than 50% in coordination of care (as documented) at patient's floor/unit and/or counseling patient:
[2019-02-02] MEDS: METOPROLOL TARTRATE 50 MG TAB PO SCH (20:51)
[2019-02-02] MEDS: APIXABAN 2.5 MG TAB PO SCH (20:51)
[2019-02-03 07:21] LABS: Basophils # (auto) 0.01 K/uL (0-0.2); Basophils % (auto) 0.1 %; Hematocrit (blood only) 48.4 % (42-52); Hemoglobin 16.1 g/dL (14.0-18.0); Immature Granulocytes # (auto) 0.04 K/uL (0.00-0.02); Immature Granulocytes % (auto) 0.3 %; Lymphocytes # (auto) 1.07 K/uL (1.2-3.4); Mean Corpuscular Hemoglobin 27.3 pg (25-34); Mean Corpuscular Hgb Conc 33.3 g/dL (32-36); Mean Corpuscular Volume 82.2 fL (80-100); Mean Platelet Volume 11.2 fL (7.4-10.4); Monocytes # (auto) 0.95 K/uL (0.11-0.59); Monocytes % (auto) 6.3 %; Neutrophils # (auto) 13.11 K/uL (1.4-6.5); Neutrophils % (auto) 86.3 %; Platelet Count 194 K/uL (130-400); RDW Coefficient of Variation 17.3 % (11.5-14.5); RDW Standard Deviation 50.9 fL (36.4-46.3); Red Blood Count 5.89 M/uL (4.7-6.1); White Blood Count 15.18 K/uL (4.8-10.8)
[2019-02-03 07:50] LABS: Albumin Level 3.8 gm/dl (3.4-5.0); BUN Creatinine Ratio 17.4 (10-20); Calcium 9.6 mg/dl (8.5-10.1); Est GFR (African American) 62.8; Est GFR (Non-African American) 54.2
[2019-02-03 07:54] LABS: Albumin Globulin Ratio 1.1 (0.9-2); Globulin 3.5 gm/dl (2.5-4.0); Total Protein 7.3 gm/dl (6.4-8.2)
[2019-02-03 08:09] VITALS: TEMP 97.2; O2SAT 90
[2019-02-03] MEDS: FLUTICASONE/SALMETEROL 250/50 (ADVAIR) 14 PUFF/1 INHALER INH SCH (08:45)
[2019-02-03] MEDS: POTASSIUM CHLORIDE 20 MEQ TABCR PO SCH (08:46)
[2019-02-03] MEDS: NICOTINE 14 MG/24 HR PATCH TD SCH (08:46)
[2019-02-03] MEDS: APIXABAN 2.5 MG TAB PO SCH (08:46)
[2019-02-03] MEDS: METOPROLOL TARTRATE 50 MG TAB PO SCH (08:46)
[2019-02-03] MEDS: ASPIRIN 81 MG ECTAB PO SCH (08:46)
[2019-02-03] MEDS ORDERED: FUROSEMIDE 40 MG TAB PO SCH (09:00)
[2019-02-03 11:05] VITALS: BP 118/81; PULSE 65
--- NOTE | 2019-02-03 17:00 | Discharge Summary ---
Date of Service February 03, 2019 Admission HPI Per Admitting Provider Patient is a 63 years old male with not significant past medical history who presents to the emergency room after being referred by Dr. Sidhu for a cardiac work-up following a visit in his office this morning where the patient showed constant A. fib's on the monitor. The patient states he originally went to see Dr. Sidhu because he felt that he is retaining fluid which has happened in the past. The patient has history of A. fib but does not take any medication because of the way they make him feel. The patient is supposed to be on Eliquis and metoprolol. The patient currently denies any chest pain nausea or vomiting but does endorse shortness of breath especially when laying flat. Patient takes one aspirin daily. Patient does not drink alcohol but smokes 2 packs/day for more than 40 years. Patient denies fever, chills, chest pain, abdominal pain, hemoptysis, hematuria, dysuria, melena, syncope, near syncope, confusion, decreased alertness. Chest x-ray shows: Cardiomegaly with evidence of mild co ngestive failure. Suspect trace pleural effusion. Abdomen pelvis CT shows: No renal, ureteral or bladder calculi identified. Diverticulosis. No evidence of acute diverticulitis. No evidence of acute appendicitis. Left inguinal hernia containing fat and a portion of colonic diverticulum. Minimal nonspecific battery cholecystic edema and minimal edema within the everett hepatis. Small small right pleural effusion. Nodular nodule of right lower lobe pulmonary opacities. While likely infectious inflammatory, short-term follow-up will be necessary to document resolution and exclude underlying now plasm. WBC 5.92, hemoglobin 16.8, hematocrit 50.1, platelets 184, PT 12.5, INR 1.2, APTT 31. Sodium 136, potassium 3.8, chloride 102, BUN 18, creatinine 1.17, GFR 65,No no evidence of bowel obstruction AST 26, total bili 1.2, ALT 21, alkaline phosphatase 133, troponin 0.0 62, BNP 10,423, TSH 1.1. Decision was made to admit patient to PCU on telemetry for paroxysmal A. fib's with RVR, elevated troponin on demand and to rule out acute coronary syndrome, acute exacerbation of congestive heart failure and pneumonia. Principal Diagnosis Afib with RVR, mild systolic CHF exacerbation Discharge Exam Constitutional WD/WN, vitals as above Eyes EOM intact bilaterally; no conjunctival abnormality ENMT external ear and nose normal, oropharynx normal Neck trachea midline, no thyromegaly normal visual inspection Respiratory normal respiratory effort, lungs clear to auscultation no respiratory distress Cardiovascular Rate/Rhythm: + tachycardic and + irregularly irregular Heart Sounds: normal S1 and normal S2 Extremities: + edema (Trace) Gastrointestinal (Abdomen) Inspection/Auscultation: abdomen normal to inspection; abdomen not distended Musculoskeletal no cyanosis or clubbing, extremities motor strength 5/5 Skin no rashes, warm and dry Neurologic moves all extremities and awake Psychiatric Orientation: alert, oriented to person and cooperative Discharge Data Allergies Allergy/AdvReac Type Severity Reaction Status Date / Time No Known Allergies Allergy Unverified 02/01/19 10:03 Consultations 02/01/19 11:27 ED Decision to Admit Stat Ordered Studies 02/01/19 10:39 CT abd pelvis wo con Stat Hospital Course (1) Atrial fibrillation with RVR: History of afib with RVR. Stopped his medications around August due to insurance reasons. Chads-Vasc is 5 (age, CHF, HTN, hx of CVA (per patient)). - Diltiazem gtt -> Transitioning back to oral metoprolol which he was on previously - Discharged on apixaban; he got a coupon card and will get samples from Dr. Bragg. - TTE from 02/02 showed EF 30-35%. He should be on an ACEi; however, I am not sure of his willingness to follow up. He does have an appointment with Dr. Bragg in 1 week. If he attends the visit and is taking his other medications, this i stephany could be introduced to him at that point. (2) Acute exacerbation of CHF (congestive heart failure): Due to stopping his Lasix and likely exacerbated by his afib with RVR. - Was on Lasix gtt initially -> Switched to oral Lasix on discharge. He appeared euvolemic on discharge. Weight was 106 kg. (3) Nicotine dependence: - Offered nicotine patch & patient accepted. (4) Elevated troponin: Due to demand from afibs. - Troponins trended down. - Outpatient work-up (5) COPD (chronic obstructive pulmonary disease): Not using any home inhalers as far as I can tell. - Continue DuoNebs PRN (6) DVT prophylaxis: Apixaban for afib Total Time Total Time Spent Total Time Spent (In Minutes): 35 Discharge Plan Discharge Items Patient Disposition: Home - Self-Care Reason For Visit: PALPITATIONS Discharge Diagnosis: Afib with RVR; mild CHF exacerbation Activity: Resume your previous activity Non-emergency contact: Primary Care Provider and Helicopter Officer Call non-emergency contact if: your symptoms worsen Follow-up/Referrals: Lasha Bragg MD [Physician] - 02/10/19 1:30 pm (Please, follow up at [facility] Office with Dr. Bragg's associate, Robert Mallory PA-C, on February 10 at 1:30 pm. *If you need to change this appointment, call the office at [phone].) Chris Nation MD [Primary Care Provider] - 02/10/19 10:45 am (Please, follow up at Dr. Nation's office with his assistant professor of chemistry, Rema Rodney, on February 10 at 10:45 am. *They will be your new primary care providers. The office is located in [address] of [facility]. This is the big building next to this [facility]. It is in the same building as Dr. Bragg's office. If you need to change this appointment, call the office at [phone].) Diet: Heart Healthy Addtl Attending Provider Instructions: Please take your metoprolol, Eliquis, Lasix (furosemide), and aspirin every day. The Eliquis needs to be taken 2 times per day to help prevent strokes. Please see Dr. Bragg next week. Pending Studies at Discharge: No Stand-Alone Forms: My [facility] Medications and DC Order Prescriptions: New nicotine 7 mg/24 hr Patch 24 Hour 7 mg transdermal QAM Qty: 30 RF: 0 apixaban 5 mg tablet 5 mg PO Q12H Qty: 60 RF: 0 furosemide [Lasix] 20 mg tablet 20 mg PO DAILY Qty: 30 RF: 0 metoprolol succinate 100 mg tablet extended release 24 hr 100 mg PO DAILY Qty: 30 RF: 0 Continued aspirin [Aspirin Childrens] 81 mg Tablet,Chewable 81 mg PO DAILY RF: 0 Discharge Orders: Discharge Order (Routine); Ordered 02/03/19 Ordered By: Hai Bonilla/Other Patient Handouts: Prediabetes, Diabetes Meal Planning Admission Data Admit Date/Time: 02/01/19 14:52 Attending Provider: Hai Leon Admit Provider: Do Plasencia Primary Care Provider: Chris Nation Other Providers: Hai Leon Other Interventions: Discharge Summary Assessment (RN) Last Done: 02/03/19 11:04 DC Date/Time DO NOT enter until pt leaves facility: 02/03/19 11:45
== END 2019-02-03 11:45 | disposition home or self-care (01) | DRG 194 ==
LOC: ED 09:08 → 2S 14:52 → SUATTDRO 14:52 → 2S 17:14

== ENCOUNTER 2019-09-25 07:03 | Inpatient (IN) ==
[2019-09-25] MEDS ORDERED: OPTIRAY 320 125ml IV PRN (07:16)
[2019-09-25 07:38] LABS: Basophils # (auto) 0.03 K/uL (0-0.2); Basophils % (auto) 0.3 %; Eosinophils # (auto) 0.03 K/uL (0-0.5); Eosinophils % (auto) 0.3 %; Hematocrit (blood only) 50.2 % (42-52); Hemoglobin 16.9 g/dL (14.0-18.0); Immature Granulocytes # (auto) 0.05 K/uL (0.00-0.02); Immature Granulocytes % (auto) 0.5 %; Lymphocytes % (auto) 12.7 %; Mean Corpuscular Hemoglobin 28.3 pg (25-34); Mean Corpuscular Hgb Conc 33.7 g/dL (32-36); Mean Corpuscular Volume 83.9 fL (80-100); Mean Platelet Volume 11.4 fL (7.4-10.4); Monocytes # (auto) 0.77 K/uL (0.11-0.59); Monocytes % (auto) 7.5 %; Neutrophils # (auto) 8.09 K/uL (1.4-6.5); Neutrophils % (auto) 78.7 %; Platelet Count 213 K/uL (130-400); RDW Coefficient of Variation 15.6 % (11.5-14.5); RDW Standard Deviation 47.7 fL (36.4-46.3); Red Blood Count 5.98 M/uL (4.7-6.1); White Blood Count 10.27 K/uL (4.8-10.8)
--- NOTE | 2019-09-25 07:39 | CT Scan Report ---
CT OF THE HEAD WITHOUT CONTRAST CLINICAL HISTORY: Stroke evaluation COMPARISON STUDY: No previous studies for comparison. TECHNIQUE: Helical axial images of the head were obtained without IV contrast. Automated exposure con trol was utilized for the study. A dose lowering technique was utilized adhering to the principles o f ALARA. FINDINGS: No acute intracranial hemorrhage, midline shift or mass effect is present. The ventricular system is normal. The basilar cisterns are patent. There are no extra-axial collections. Extensive wh ite matter hypodensities favor small vessel disease. There is a possible small hypodense focus with l oss of eastman-white differentiation within the right frontal lobe on axial image 23 of 32. The basilar cisterns are patent. There are no extra-axial collections. No significant calvarial abnormalities are present. IMPRESSION: 1. No acute intracranial hemorrhage or mass effect. 2. Possible hypodense focus within the right frontal lobe with loss of eastman-white differentiation. Th is could reflect artifact or a small acute infarct. ACT 112: Negative or not required by law. Electronically signed by: Ton Potter M.D. 09/25/2019 7:38 AM
--- NOTE | 2019-09-25 07:45 | XRay Report ---
XR chest 1V portable CLINICAL HISTORY: Cerebrovascular accident. COMPARISON STUDY: Chest radiograph February 01, 2019. FINDINGS: Moderate cardiomegaly is noted. There is no pneumothorax or pleural effusion. There is pulm onary vascular congestion. There is no consolidation to suggest pneumonia. IMPRESSION: 1. Moderate cardiomegaly. 2. Pulmonary vascular congestion. ACT 112: Negative or not required by law. Electronically signed by: Ton Potter M.D. 09/25/2019 7:43 AM
[2019-09-25 07:51] LABS: INR 1.1 (0.9-1.1); Partial Thromboplastin Ratio 1.3; Partial Thromboplastin Time 35.3 Seconds (21.0-31.0); Prothrombin Time 11.6 Seconds (9.0-12.0)
[2019-09-25 07:52] LABS: iSTAT Creatinine 0.9 mg/dl (0.6-1.3); iSTAT Hemoglobin 17.3 g/dl (14.0-18.0); iSTAT Ionized Calcium 1.17 mmol/l (1.12-1.32); iSTAT Potassium 3.5 mmol/L (3.3-5.0)
--- NOTE | 2019-09-25 07:53 | CT Scan Report ---
CT ANGIOGRAPHY OF THE NECK WITH CONTRAST CLINICAL HISTORY: Stroke evaluation COMPARISON STUDY: No previous studies for comparison. Technique: CT angiography of the carotid and vertebral arteries was obtained using [employer] 320 IV and 3D reconstruction on an independent workstation. NASCET criteria was utilized. Automated exposure c ontrol was utilized for the study. A dose lowering technique was utilized adhering to the principles of ALARA. CT DOSE: 1393.58 mGy.cm Findings: Note is made of paraseptal emphysema within visualized portions of the lung apices. There i s no cervical lymphadenopathy. There is no cervical spine fracture. No suspicious osseous lesion is n oted. Evaluation of the major vessels within the neck is suboptimal given suboptimal vascular opacifi cation. There is moderate plaque within the proximal bilateral internal carotid arteries. Stenosis of the proximal right internal carotid artery is noted 1.5 cm distal to vessel origin. The vessel measu res 2 mm in caliber. The distal right internal carotid artery measures 3.9 mm in caliber. Stenosis of the proximal left internal carotid artery 1.4 cm distal to vessel origin is noted. The vessel measur es 1.8 mm in caliber at the level of stenosis and 4 mm distally. The right vertebral artery is somewh at diminutive. The left vertebral artery is dominant and patent. No dissection within major vessels o f the neck. IMPRESSION: 1. Moderate atherosclerotic plaque within the proximal bilateral internal carotid arteries. 60% steno sis of the proximal left internal carotid artery and 40% stenosis of the proximal right internal de souza tid artery. 2. No dissection. ACT 112: Negative or not required by law. Electronically signed by: Ton Potter M.D. 09/25/2019 7:52 AM
[2019-09-25 07:54] LABS: Alanine Aminotransferase 17 U/L (12-78); Albumin Level 3.3 gm/dl (3.4-5.0); Aspartate Aminotransferase 13 U/L (15-37); Blood Urea Nitrogen 16 mg/dl (7-18); Carbon Dioxide 25 mmol/L (21-32); Chloride 104 mmol/L (98-107); Est GFR (African American) 86.3; Est GFR (Non-African American) 74.5; Glucose 122 mg/dl (70-99); Magnesium 2.2 mg/dl (1.8-2.4); Potassium 3.5 mmol/L (3.5-5.1); Sodium 138 mmol/L (136-145)
--- NOTE | 2019-09-25 07:56 | Emergency Department Note ---
History of Present Illness General Chief complaint: Stroke Alert Stated complaint: stroke symptoms Source: patient and RN notes reviewed Mode of arrival: EMS Limitations: no limitations History of Present Illness Provider complaint: Stroke Onset (ago): hour(s) 4 (4.5) This patient is a 64-year-old male who presents emergency department by ambulance with strokelike symptoms that began suddenly at 230 this morning. The patient got up to let his dogs out and had an acute onset of weakness. He relates 2 separate falls. He noticed his face droop in the mirror and difficulty speaking when he yelled for the dogs. Patient arrives 4.5 hours after the onset of symptoms. He denies any recent illnesses. He admits to taking Eliquis and aspirin and has a history of atrial fibrillation. The patient denies any headache or chest pain at this time. He denies hitting his head. Home Medications Home Medications Medication Instructions Recorded Confirmed Type aspirin [Aspirin Childrens] 81 mg PO QAM 02/01/19 09/25/19 History apixaban 5 mg tablet 5 mg PO Q12H #180 tab 08/30/19 09/25/19 Rx furosemide [Lasix] 20 mg PO QAM 09/25/19 09/25/19 History metoprolol succinate 100 mg PO QAM 09/25/19 09/25/19 History Allergies Allergy/AdvReac Type Severity Reaction Status Date / Time No Known Allergies Allergy Unverified 09/25/19 08:02 Past Med/Surg History Medical History Atrial fibrillation COPD (chronic obstructive pulmonary disease) Nicotine addiction Social History Preferred Language: Polish Communication Ability: Effective Hosted Services Analyst Required: No Beliefs That Will Affect Care: None Current Living Situation: Spouse Feels Safe at Home: Yes Smoking Status: Current every day smoker Tobacco Type: cigarettes ; Cigarettes Per Day: 40 ; Second Hand Exposure: No ; Hx Alcohol Use: No Hx Substance Use: No Review of Systems See HPI for pertinent positives & negatives. and A total of 10 systems reviewed and were otherwise negative Physical Exam Vital Signs Vital Signs - 24 hr 09/25/19 07:08 09/25/19 07:28 09/25/19 07:29 Temperature 36.6 C Temperature Source Oral Pulse Rate 107 H 97 H 107 H Pulse Rate from SpO2 Sensor 107 H Respiratory Rate 20 20 21 Respiratory Effort / Characteristics Non-Labored Spontaneous Respiratory Depth Normal Respiratory Pattern Regular Blood Pressure 156/105 H 156/105 H Blood Pressure Mean 122 110 Blood Pressure Position Lying Pulse Oximetry 97 95 Oxygen Delivery Method Room Air Room Air Sepsis Recent Fever Within 48 Hours No Sepsis New/Unexplained Change in Mental Status No Sepsis Action Taken by Nursing No Action Required 09/25/19 07:30 09/25/19 07:31 09/25/19 07:43 Temperature Temperature Source Pulse Rate 107 H 108 H Pulse Rate from SpO2 Sensor 99 H Respiratory Rate 23 19 Respiratory Effort / Characteristics Respiratory Depth Respiratory Pattern Blood Pressure 186/146 H Blood Pressure Mean 158 Blood Pressure Position Pulse Oximetry 94 Oxygen Delivery Method Room Air Sepsis Recent Fever Within 48 Hours Sepsis New/Unexplained Change in Mental Status Sepsis Action Taken by Nursing 09/25/19 07:44 09/25/19 07:50 09/25/19 08:00 Temperature Temperature Source Pulse Rate 110 H 111 H 102 H Pulse Rate from SpO2 Sensor 111 H 100 H Respiratory Rate 24 17 24 Respiratory Effort / Characteristics Respiratory Depth Respiratory Pattern Blood Pressure 186/128 H Blood Pressure Mean 154 Blood Pressure Position Pulse Oximetry 96 97 Oxygen Delivery Method Room Air Room Air Sepsis Recent Fever Within 48 Hours Sepsis New/Unexplained Change in Mental Status Sepsis Action Taken by Nursing 09/25/19 08:01 09/25/19 08:02 09/25/19 08:10 Temperature Temperature Source Pulse Rate 96 H 86 95 H Pulse Rate from SpO2 Sensor 99 H 93 H 99 H Respiratory Rate 20 20 18 Respiratory Effort / Characteristics Respiratory Depth Respiratory Pattern Blood Pressure 167/118 H Blood Pressure Mean 129 Blood Pressure Position Pulse Oximetry 97 95 98 Oxygen Delivery Method Room Air Room Air Room Air Sepsis Recent Fever Within 48 Hours Sepsis New/Unexplained Change in Mental Status Sepsis Action Taken by Nursing 09/25/19 08:20 09/25/19 08:23 09/25/19 08:25 Temperature Temperature Source Pulse Rate 107 H 114 H 109 H Pulse Rate from SpO2 Sensor 110 H 106 H Respiratory Rate 20 22 Respiratory Effort / Characteristics Respiratory Depth Respiratory Pattern Blood Pressure 183/126 H 183/126 H Blood Pressure Mean 144 Blood Pressure Position Pulse Oximetry 96 95 Oxygen Delivery Method Room Air Room Air Sepsis Recent Fever Within 48 Hours Sepsis New/Unexplained Change in Mental Status Sepsis Action Taken by Nursing 09/25/19 08:30 09/25/19 08:31 09/25/19 08:40 Temperature Temperature Source Pulse Rate 97 H 94 H 95 H Pulse Rate from SpO2 Sensor 95 H 98 H 103 H Respiratory Rate 20 17 13 Respiratory Effort / Characteristics Respiratory Depth Respiratory Pattern Blood Pressure 198/126 H Blood Pressure Mean 147 Blood Pressure Position Pulse Oximetry 95 96 97 Oxygen Delivery Method Room Air Room Air Room Air Sepsis Recent Fever Within 48 Hours Sepsis New/Unexplained Change in Mental Status Sepsis Action Taken by Nursing 09/25/19 08:46 09/25/19 08:49 09/25/19 08:50 Temperature Temperature Source Pulse Rate 94 H 106 H 105 H Pulse Rate from SpO2 Sensor 98 H 107 H Respiratory Rate 17 21 19 Respiratory Effort / Characteristics Respiratory Depth Respiratory Pattern Blood Pressure 176/159 H 194/133 H Blood Pressure Mean 164 147 Blood Pressure Position Pulse Oximetry 97 97 Oxygen Delivery Method Room Air Room Air Sepsis Recent Fever Within 48 Hours Sepsis New/Unexplained Change in Mental Status Sepsis Action Taken by Nursing 09/25/19 09:00 09/25/19 09:01 09/25/19 09:10 Temperature Temperature Source Pulse Rate 127 H 120 H 97 H Pulse Rate from SpO2 Sensor 98 H Respiratory Rate 20 22 20 Respiratory Effort / Characteristics Respiratory Depth Respiratory Pattern Blood Pressure 200/135 H Blood Pressure Mean 160 Blood Pressure Position Pulse Oximetry 94 Oxygen Delivery Method Room Air Sepsis Recent Fever Within 48 Hours Sepsis New/Unexplained Change in Mental Status Sepsis Action Taken by Nursing Vital signs reviewed. General: Chronically ill-appearing 64 yo male HEENT: No scleral icterus, PERRLA, neck supple. Edentulous Cardiovascular: Regular rate and rhythm, no extra sounds. Pulmonary: Clear to auscultation bilaterally, normal work of breathing. Abdomen: Soft, obese, nontender, nondistended, positive bowel sounds. Musculoskeletal: Normal peripheral edema, generally atraumatic. Neurologic: Patient awake alert and oriented x 3 right-sided facial droop most notable with nasolabial fold flattening on the right. Expressive aphasia. Minimal ataxia noted to the right upper extremity, 4/5 strength to right upper and right lower extremity. Subtle pronator drift to the right upper extremity. Skin: Warm, dry, no rash Course Administered Medications Heparin Sodium/Dextrose (Heparin Sodium/Dextrose) 25,000 units in 500 mls @ 34 mls/hr IV .[id number] [facility]; Protocol Stop: 09/25/19 20:56 Last Admin: 09/25/19 11:16 Dose: 1,700 units/hr, 34 mls/hr Documented by: [id number] Cosigned by: [id number] Ioversol (Optiray 320 125ml) 120 ml IV ONCE PRN PRN Reason: Interaction Checking Stop: 09/29/19 07:15 Last Admin: 09/25/19 07:17 Dose: 120 ml Documented by: [id number] Miscellaneous (Remove Nicoderm Patch) 1 ea N/A DAILY@[id number] [facility] Stop: 09/26/19 09:00 Last Admin: 09/25/19 12:32 Dose: Not Given Documented by: [id number] Discontinued Medications Aspirin (Aspirin) 300 mg GA ONE ONE Stop: 09/25/19 10:13 Last Admin: 09/25/19 11:17 Dose: 300 mg Documented by: [id number] Heparin Sodium/Dextrose () 1 ea IV ONE ONE; Protocol Stop: 09/25/19 10:13 Last Admin: 09/25/19 11:12 Dose: Not Given Documented by: [id number] Metoprolol Tartrate (Lopressor) 5 mg IV NOW STA Stop: 09/25/19 08:19 Last Admin: 09/25/19 08:23 Dose: 5 mg Documented by: [id number] Metoprolol Tartrate (Lopressor) 5 mg IV Q4 [facility] Stop: 10/25/19 12:39 Last Admin: 09/25/19 14:28 Dose: Not Given Documented by: [id number] Nicotine (Nicoderm Cq) 14 mg TD NOW STA Stop: 09/25/19 08:19 Last Admin: 09/25/19 08:23 Dose: 14 mg Documented by: [id number] Medical Decision Making Differential Diagnosis Differential includes acute coronary syndrome, myocardial infarction, CVA, TIA, anemia, infection, pneumonia, UTI, pyelonephritis, poor nutrition, dehydration, electrolyte disturbance,hypoglycemia. Medical Records Attestation: I reviewed the patient's medical records. Home Medications Current Medication List: was personally reviewed by me Laboratory Data Attestation: I reviewed the patient's lab results. Result diagrams: 09/25/19 07:28 09/25/19 07:28 Lab Results 09/25/19 09/25/19 09/25/19 Range/Units 07: 07: 07:28 WBC 10.27 (4.8-10.8) K/uL RBC 5.98 (4.7-6.1) M/uL Hgb 16.9 (14.0-18.0) g/dL POC Hgb (14.0-18.0) g/dl Hct 50.2 (42-52) % POC Hct (42-52) % MCV 83.9 (80-100) fL MCH 28.3 (25-34) pg MCHC 33.7 (32-36) g/dL RDW Std Deviation 47.7 H (36.4-46.3) fL RDW Coeff of Jnoas 15.6 H (11.5-14.5) % Plt Count 213 (130-400) K/uL MPV 11.4 H (7.4-10.4) fL Immature Gran % (Auto) 0.5 % Neut % (Auto) 78.7 % Lymph % (Auto) 12.7 % [place] % (Auto) 7.5 % Eos % (Auto) 0.3 % Baso % (Auto) 0.3 % Immature Gran # (Auto) 0.05 H (0.00-0.02) K/uL Neut # (Auto) 8.09 H (1.4-6.5) K/uL Lymph # (Auto) 1.30 (1.2-3.4) K/uL [place] # (Auto) 0.77 H (0.11-0.59) K/uL Eos # (Auto) 0.03 (0-0.5) K/uL Baso # (Auto) 0.03 (0-0.2) K/uL PT 11.6 (9.0-12.0) Seconds INR 1.1 (0.9-1.1) APTT 35.3 H (21.0-31.0) Seconds PTT Ratio 1.3 POC Sodium (135-144) mmol/L Sodium 138 (136-145) mmol/L POC Potassium (3.3-5.0) mmol/L Potassium 3.5 (3.5-5.1) mmol/L POC Chloride (101-112) mmol/L Chloride 104 (98-107) mmol/L Carbon Dioxide 25 (21-32) mmol/L POC Total CO2 (24-31) mmol/L Anion Gap 8.0 (3-11) POC Anion Gap (16-25) mmol/L POC BUN (7-18) mg/dl BUN 16 (7-18) mg/dl Creatinine 1.04 (0.6-1.4) mg/dl POC Creatinine (0.6-1.3) mg/dl Est Cr Clr Drug Dosing Not Reportable Est GFR ( Amer) 86.3 Est GFR (Non-Af Amer) 74.5 BUN/Creatinine Ratio 15.0 (10-20) Glucose 122 H (70-99) mg/dl POC Glucose (70-99) mg/dl POC Glucose (other) (70-99) mg/dl Calcium 9.0 (8.5-10.1) mg/dl POC Ioniz Calcium Aquiles (1.12-1.32) mmol/l Magnesium 2.2 (1.8-2.4) mg/dl Total Bilirubin 0.6 (0.2-1) mg/dl AST 13 L (15-37) U/L ALT 17 (12-78) U/L Alkaline Phosphatase 132 H (45-117) U/L Troponin I < 0.015 (0-0.045) ng/ml Total Protein 7.4 (6.4-8.2) gm/dl Albumin 3.3 L (3.4-5.0) gm/dl Globulin 4.1 H (2.5-4.0) gm/dl Albumin/Globulin Ratio 0.8 L (0.9-2) 09/25/19 09/25/19 Range/Units 07:34 07:39 WBC (4.8-10.8) K/uL RBC (4.7-6.1) M/uL Hgb (14.0-18.0) g/dL POC Hgb 17.3 (14.0-18.0) g/dl Hct (42-52) % POC Hct 51 (42-52) % MCV (80-100) fL MCH (25-34) pg MCHC (32-36) g/dL RDW Std Deviation (36.4-46.3) fL RDW Coeff of Jonas (11.5-14.5) % Plt Count (130-400) K/uL MPV (7.4-10.4) fL Immature Gran % (Auto) % Neut % (Auto) % Lymph % (Auto) % [place] % (Auto) % Eos % (Auto) % Baso % (Auto) % Immature Gran # (Auto) (0.00-0.02) K/uL Neut # (Auto) (1.4-6.5) K/uL Lymph # (Auto) (1.2-3.4) K/uL [place] # (Auto) (0.11-0.59) K/uL Eos # (Auto) (0-0.5) K/uL Baso # (Auto) (0-0.2) K/uL PT (9.0-12.0) Seconds INR (0.9-1.1) APTT (21.0-31.0) Seconds PTT Ratio POC Sodium 139 (135-144) mmol/L Sodium (136-145) mmol/L POC Potassium 3.5 (3.3-5.0) mmol/L Potassium (3.5-5.1) mmol/L POC Chloride 102 (101-112) mmol/L Chloride (98-107) mmol/L Carbon Dioxide (21-32) mmol/L POC Total CO2 24 (24-31) mmol/L Anion Gap (3-11) POC Anion Gap 17.0 (16-25) mmol/L POC BUN 15 (7-18) mg/dl BUN (7-18) mg/dl Creatinine (0.6-1.4) mg/dl POC Creatinine 0.9 (0.6-1.3) mg/dl Est Cr Clr Drug Dosing Est GFR ( Amer) Est GFR (Non-Af Amer) BUN/Creatinine Ratio (10-20) Glucose (70-99) mg/dl POC Glucose 129 H (70-99) mg/dl POC Glucose (other) 116 H (70-99) mg/dl Calcium (8.5-10.1) mg/dl POC Ioniz Calcium Aquiles 1.17 (1.12-1.32) mmol/l Magnesium (1.8-2.4) mg/dl Total Bilirubin (0.2-1) mg/dl AST (15-37) U/L ALT (12-78) U/L Alkaline Phosphatase (45-117) U/L Troponin I (0-0.045) ng/ml Total Protein (6.4-8.2) gm/dl Albumin (3.4-5.0) gm/dl Globulin (2.5-4.0) gm/dl Albumin/Globulin Ratio (0.9-2) Imaging Data Attestation: I personally reviewed and interpreted this imaging study as follows: Radiologist's Impression: XR chest 1V portable CLINICAL HISTORY: Cerebrovascular accident. COMPARISON STUDY: Chest radiograph February 01, 2019. FINDINGS: Moderate cardiomegaly is noted. There is no pneumothorax or pleural effusion. There is pulmonary vascular congestion. There is no consolidation to suggest pneumonia. IMPRESSION: 1. Moderate cardiomegaly. 2. Pulmonary vascular congestion. ACT 112: Negative or not required by law. Electronically signed by: Ton Potter M.D. 09/25/2019 7:43 AM Dictated: 09/25/1944 Transcribed: 09/25/19741 CT OF THE HEAD WITHOUT CONTRAST CLINICAL HISTORY: Stroke evaluation COMPARISON STUDY: No previous studies for comparison. TECHNIQUE: Helical axial images of the head were obtained without IV contrast. Automated exposure control was utilized for the study. A dose lowering technique was utilized adhering to the principles of ALARA. FINDINGS: No acute intracranial hemorrhage, midline shift or mass effect is present. The ventricular system is normal. The basilar cisterns are patent. There are no extra-axial collections. Extensive white matter hypodensities favor small vessel disease. There is a possible small hypodense focus with loss of eastman-white differentiation within the right frontal lobe on axial image 23 of 32. The basilar cisterns are patent. There are no extra-axial collections. No significant calvarial abnormalities are present. IMPRESSION: 1. No acute intracranial hemorrhage or mass effect. 2. Possible hypodense focus within the right frontal lobe with loss of eastman- white differentiation. This could reflect artifact or a small acute infarct. ACT 112: Negative or not required by law. Electronically signed by: Ton Potter M.D. 09/25/2019 7:38 AM Dictated: 09/25/19 0729 Transcribed: 09/25/19728 CTA ANGIOGRAPHY OF THE HEAD CLINICAL HISTORY: Stroke evaluation COMPARISON STUDY: No previous studies for comparison. TECHNIQUE: Helical axial images of the head were obtained following uneventful intravenous administration of 120 cc of Optiray 320. Sagittal and coronal reconstructions were viewed as well as maximal intensity projections on an independent 3-D workstation. Automated exposure control was utilized for the study. A dose lowering technique was utilized adhering to the principles of ALARA. FINDINGS: Brain volume is normal. Ventricular system is normal. Basilar cisterns are patent. No acute hemorrhage is identified on this exam. There is moderate plaque within the bilateral cavernous carotids. There is no abrupt vessel cutoff. No intraluminal thrombus is noted. Left vertebral artery is dominant. Right vertebral artery is diminutive. IMPRESSION: 1. No central vascular occlusion. No intraluminal thrombus. No aneurysm. 2. Moderate atherosclerotic plaque within the bilateral cavernous carotids. ACT 112: Negative or not required by law. Electronically signed by: Ton Potter M.D. 09/25/2019 7:55 AM Dictated: 09/25/19 0752 Transcribed: 09/25/19751 CT ANGIOGRAPHY OF THE NECK WITH CONTRAST CLINICAL HISTORY: Stroke evaluation COMPARISON STUDY: No previous studies for comparison. Technique: CT angiography of the carotid and vertebral arteries was obtained using [id number] Wear 320 IV and 3D reconstruction on an independent workstation. NASCET criteria was utilized. Automated exposure control was utilized for the study. A dose lowering technique was utilized adhering to the principles of ALARA. CT DOSE: 1393.58 mGy.cm Findings: Note is made of paraseptal emphysema within visualized portions of the lung apices. There is no cervical lymphadenopathy. There is no cervical spine fracture. No suspicious osseous lesion is noted. Evaluation of the major vessels within the neck is suboptimal given suboptimal vascular opacification. There is moderate plaque within the proximal bilateral internal carotid arteries. Stenosis of the proximal right internal carotid artery is noted 1.5 cm distal to vessel origin. The vessel measures 2 mm in caliber. The distal right internal carotid artery measures 3.9 mm in caliber. Stenosis of the proximal left internal carotid artery 1.4 cm distal to vessel origin is noted. The vessel measures 1.8 mm in caliber at the level of stenosis and 4 mm distally. The right vertebral artery is somewhat diminutive. The left vertebral artery is dominant and patent. No dissection within major vessels of the neck. IMPRESSION: 1. Moderate atherosclerotic plaque within the proximal bilateral internal carotid arteries. 60% stenosis of the proximal left internal carotid artery and 40% stenosis of the proximal right internal carotid artery. 2. No dissection. ACT 112: Negative or not required by law. Electronically signed by: Ton Potter M.D. 09/25/2019 7:52 AM Dictated: 09/25/19 0744 Transcribed: 09/25/19743 ECG Data Attestation: I personally reviewed and interpreted this ECG as follows: Indication: + other (CVA) Rate (beats per minute): 100 Rhythm: + atrial fibrillation ECG Intervals/blocks: + Left anterior fascicular block and + Prolonged QT ECG [place]: + Left axis deviation ECG ST segments: + Nonspecific ST abnormalities ECG Findings: + PVCs and + LVH Blood Pressure Blood Pressure Findings: Elevated blood pressure Blood Pressure Disposition: further management by hospitalist MATEO Almaguer An order for cardiac monitoring was placed and the patient is found to be in a likely atrial fibrillation at 100 bpm This patient was evaluated and appeared to be in no significant distress. IV access was obtained and laboratory work was drawn. Patient was placed on the site monitor and found to be in a rate controlled atrial fibrillation with frequent PVCs. Patient's laboratory work reveals no evidence of acute abn ormality. Patient's chest x-ray is significant for pulmonary vascular congestion and cardiomegaly. Head CT is read as a possible hypodense focus within the right frontal lobe with loss of eastman-white differentiation. CT angiogram of the head and neck reveals moderate atherosclerotic plaque with bi lateral cavernous carotids. There is also atherosclerotic plaque within the proximal bilateral internal carotids, 60% stenosis of the proximal left internal carotid artery and 40% stenosis of the proximal right internal carotid artery. I did speak with the stroke attending at [facility] who states the patient is fully anticoagulated and out of the window for TPA. Does not appear that he is a candidate for an interventional thrombectomy. Patient did receive 5 mg of IV metoprolol for rate and blood pressure control. Patient was informed of the findings. Patient was discussed with the hospitalist service, Dr. Soni who will evaluate the patient for further management. Impression & Plan Stroke, Atrial fibrillation, Hypertension Discharge Plan Visit Data *Final* Discharge Date/Time: 09/25/19 12:02 Chief Complaint: Stroke Alert Stated Complaint: stroke symptoms ED Provider: Roxanna Haque Discharge Problem: Stroke, Atrial fibrillation, Hypertension Patient Disposition: Admitted As Inpatient Discharge Instructions Interventions: ED Discharge Assessment Last Done: 09/25/19 12:02 Discharge Problem: Stroke Qualifiers: CVA mechanism: embolism Precerebral and cerebral artery: unspecified cerebral artery Qualified Code(s): I63.40 - Cerebral infarction due to embolism of unspecified cerebral artery Atrial fibrillation Qualifiers: Atrial fibrillation type: unspecified Qualified Code(s): I48.91 - Unspecified atrial fibrillation Hypertension Qualifiers: Hypertension type: essential hypertension Qualified Code(s): I10 - Essential (primary) hypertension
--- NOTE | 2019-09-25 07:57 | CT Scan Report ---
CTA ANGIOGRAPHY OF THE HEAD CLINICAL HISTORY: Stroke evaluation COMPARISON STUDY: No previous studies for comparison. TECHNIQUE: Helical axial images of the head were obtained following uneventful intravenous administr ation of 120 cc of Optiray 320. Sagittal and coronal reconstructions were viewed as well as maximal i ntensity projections on an independent 3-D workstation. Automated exposure control was utilized for the study. A dose lowering technique was utilized adhering to the principles of ALARA. FINDINGS: Brain volume is normal. Ventricular system is normal. Basilar cisterns are patent. No acute hemorrhage is identified on this exam. There is moderate plaque within the bilateral cavernous carot ids. There is no abrupt vessel cutoff. No intraluminal thrombus is noted. Left vertebral artery is do minant. Right vertebral artery is diminutive. IMPRESSION: 1. No central vascular occlusion. No intraluminal thrombus. No aneurysm. 2. Moderate atherosclerotic plaque within the bilateral cavernous carotids. ACT 112: Negative or not required by law. Electronically signed by: Ton Potter M.D. 09/25/2019 7:55 AM
[2019-09-25 07:58] LABS: Albumin Globulin Ratio 0.8 (0.9-2); Alkaline Phosphatase 132 U/L (45-117); Bilirubin,Total 0.6 mg/dl (0.2-1); Globulin 4.1 gm/dl (2.5-4.0); Total Protein 7.4 gm/dl (6.4-8.2); Troponin I < 0.015 ng/ml (0-0.045)
[2019-09-25] MEDS ORDERED: METOPROLOL TARTRATE 1 MG/ML VIAL IV STA (08:18)
[2019-09-25] MEDS ORDERED: NICOTINE 14 MG/24 HR PATCH TD STA (08:18)
--- NOTE | 2019-09-25 09:13 | History & Physical Report ---
Date of Service September 25, 2019 Assessment & Plan (1) Acute CVA (cerebrovascular accident): Mr. Francisco is a 64-year-old male with a past medical history of coronary artery disease, atrial fibrillation, COPD, hypertension, chronic systolic CHF with an ejection fraction of 30-35%, cardiomyopathy and nicotine dependence who presented to [facility] due to sudden onset of right-sided weakness. ED course: 5mg IV Lopressor, 14mg TD nicotine patch Acute CVA -admit to telemetry -examination consistent with acute ischemic CVA -> patient w/R sided facial droop, expressive aphasia, and R sided UE and LE weakness -CT brain: no evidence of hemorrhage. ?hypodense focus within the right frontal lobe -> query artifact or a small acute infarct. -CTA head & neck: Moderate atherosclerotic plaque within the bilateral cavernous carotids and within the proximal bilateral internal carotid arteries. 60% stenosis of the proximal left internal carotid artery and 40% stenosis of the proximal right internal carotid artery -MRI with and without contrast ordered to further evaluate -ECHO ordered -neurology consulted -patient failed dysphagia screen in ER -> 300mg of ASA ordered FL -will continue daily 81mg ASA -PT/OT/SLT evals ordered -fasting lipid panel and HbA1c ordered -lipid panel from 02/2019 actually reasonable, with TG of 69, chol of 144, LDL of 97, HDL of 33 -> will initiate 40mg of atorvastatin given s/p CVA Hypertension -allowing for permissive HTN -Dr. Bragg had ordered 5mg of lisinopril in 03/2019 however patient never filled this prescription, recommend initiating this medication prior to d/c Atrial fibrillation -given unable to take PO as he failed dysphagia screen: -> PO metoprolol for rate control changed to 5mg of IV Lopressor q4h with hold parameters in place (do not give if systolic <140/90 to allow for permissive HTN) -> Eliquis transitioned to heparin drip -EKG in emergency department shows sinus rhythm with frequent PACs -Continue to monitor on telemetry Carotid artery stenosis -noted on CTA head/neck, will require continued outpatient monitoring Chronic systolic CHF/cardiomyopathy/presumed coronary artery disease -Follows with Dr. Bragg -ECHO in 02/2019 revealed moderate to severely reduced systolic function w/EF of 30-35%, global hypokinesis, and severe LVH. Mild AR, MR and aortic root dilatation noted as well -per cardio notes, pt presumed to have CAD given anterior WMA noted in September 2016 -hold Lasix at this time, given allowing for permissive HTN -patient appears euvolemic on examination, however dry weight was listed as 106kg in 03/2019 and patient is 122kg on admission -CXR with evidence of pulmonary vascular congestion. Pt w/out respiratory complaints -cardiology consult requested given severe CHF, and medication changes required Nicotine dependence/COPD -nicotine patch ordered -COPD noted on medical hx, but does not use inhalers or report respiratory symptoms CODE STATUS: Full DVT prophylaxis: Heparin drip Disposition: Admit to telemetry. Anticipate discharge to rehab. PT/OT evals requested (2) Carotid artery stenosis: (3) Chronic systolic (congestive) heart failure: (4) Cardiomyopathy: (5) CAD (coronary artery disease): (6) Hypercholesterolemia: (7) Hypertension: (8) COPD (chronic obstructive pulmonary disease): (9) Nicotine dependence: (10) Atrial fibrillation: History of Present Illness Chief Complaint: Right sided weakness Primary Care Provider: NO PCP Mr. Francisco is a 64-year-old male with a past medical history of coronary artery disease, atrial fibrillation, COPD, hypertension, systolic CHF with an ejection fraction of 30-35%, cardiomyopathy and nicotine dependence who presented to [facility] due to sudden onset of right-sided weakness. He states he went to bed at approximately 11:30 p.m., and awoke at 2:30 a.m. to let out his dogs. He reports that at this time, he had sudden ons et of weakness, resulting in a fall. He denies hitting his head or loss of consciousness. He denies any chest pain, shortness of breath, or lightheadedness prior to the fall. At this time, he also noted a facial droop in the mirror, and difficulty speaking. He was able to call 911, and the paramedics at this time noted right-sided weakness, slurred speech, and a facial droop. He denies a prior history of a stroke. He states that he is otherwise been feeling well. He reports he lives at home with his , who is currently out of town and driving in. With regards to his past medical history, he follows with Dr. Bragg for his cardiac disease. He states he has been compliant with taking his medications. Of note, Dr. Bragg had sent in a prescription for him for lisinopril in March 2019. He states that he never picked this up. He states that he has not been on a cholesterol medication before. Of note, he smokes 2 packs of cigarettes a day, and has been smoking since age 16. Allergies Allergy/AdvReac Type Severity Reaction Status Date / Time No Known Allergies Allergy Unverified 09/25/19 08:02 Home Medications Home Medications Medication Instructions Recorded Confirmed Type apixaban 5 mg tablet 5 mg PO Q12H #180 tab 08/30/19 09/25/19 Rx furosemide [Lasix] 20 mg PO QAM 09/25/19 09/25/19 History metoprolol succinate 100 mg PO QAM 09/25/19 09/25/19 History albuterol sulfate [Ventolin HFA] 2 puff INHALATION Q6H PRN #18 gm 09/27/19 Rx amlodipine [Norvasc] 5 mg PO BID #30 tab 09/27/19 Rx atorvastatin 80 mg PO QAM #30 tab 09/27/19 Rx clopidogrel 75 mg PO QAM #30 tab 09/27/19 Rx lisinopril 10 mg PO QAM #30 tab 09/27/19 Rx nicotine 14 mg TRANSDERMAL QAM #14 ea 09/27/19 Rx tiotropium bromide [Spiriva 2 puffs INH DAILY #4 gm 09/27/19 Rx Respimat] Past Med/Surg History Medical History (Updated 09/27/19 @ 22:24 by Antionette Soni MD) Atrial fibrillation (Acute) CAD (coronary artery disease) Carotid artery stenosis Chronic systolic (congestive) heart failure COPD (chronic obstructive pulmonary disease) Hypercholesterolemia Hypertension (Acute) Nicotine addiction Surgical History S/P tonsillectomy Family History Mother Hypertension Father , age 52 of an [place] Myocardial infarction Other Family history non-contributory Social History Preferred Language: Macedonian Communication Ability: Impaired Transportation Aid Required: No Beliefs That Will Affect Care: None Current Living Situation: Spouse current occupational status: retired 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 Feels Safe at Home: Yes Smoking Status: Current every day smoker Tobacco Type: cigarettes ; Age Started Using Tobacco: 13 ; Cigarettes Per Day: 40 ; Second Hand Exposure: No ; Hx Alcohol Use: No (Former heavy alcohol user) Hx Substance Use: No Review of Systems Constitutional: no fever, no chills and no fatigue Eyes: no diplopia, no loss of peripheral vision, no spots in vision, no tunnel vision and no worsening vision Respiratory: no cough, no dyspnea and no wheezing Cardiovascular: no chest pain, no palpitations, no syncope, no edema and no calf pain Gastrointestinal: no abdominal pain, no nausea, no vomiting and no change in bowel habits Integumentary: no rash Neurologic: + unsteadiness, + falls, + localized weakness (Right-sided weakness), + lack of coordination and + abnormal speech; no tremor(s), no syncope, no headache(s), no confusion and no memory loss Physical Exam Constitutional: WD/WN, vitals as above Eyes: PERRL, conjunctivae normal, anicteric sclerae ENMT: external ear and nose normal, oropharynx normal Respiratory: normal respiratory effort, lungs clear to auscultation Cardiovascular: RRR, no murmur, no edema Gastrointestinal (Abdomen): normal bowel sounds, soft, nontender, no hepatosplenomegaly Musculoskeletal: 4/5 strength of right upper and lower extremity, 5/5 strength of left side Skin: no rashes, warm and dry Neurologic: Motor/Sensory: no tremor + expressive aphasia + Right-sided facial droop + Coordination impaired on right side, noted with [id number] test + Dysdiadochokinesia on right side + Mild pronator drift noted to right arm Psychiatric: A+Ox3, euthymic affect Results & Data Results & Data ([facility]) Vital Signs (Past 12 Hours) Vital Signs Temp Pulse Resp BP Pulse Ox 09/25/19 08:40 95 H 13 97 09/25/19 08:31 94 H 17 96 09/25/19 08:30 97 H 20 198/126 H 95 09/25/19 08:25 109 H 22 183/126 H 95 09/25/19 08:23 114 H 183/126 H 09/25/19 08:20 107 H 20 96 05/24/20 08:10 95 H 18 98 05/24/20 08:02 86 20 95 09/25/19 08:01 96 H 20 167/118 H 97 09/25/19 08:00 102 H 24 97 09/25/19 07:50 111 H 17 09/25/19 07:44 110 H 24 186/128 H 96 09/25/19 07:43 108 H 19 94 09/25/19 07:31 107 H 23 09/25/19 07:30 186/146 H 09/25/19 07:29 107 H 21 95 09/25/19 07:28 97 H 20 156/105 H 09/25/19 07:08 36.6 C 107 H 20 156/105 H 97 Supervising Physician Co-Signing Physician Notes I personally examined the patient and verified all rios points of history and exam, discussed case, and agree with decision making with Dr. Kee with the following additions/exceptions: Mr. Francisco is a 64 yo male with a h/o CAD, chronic systolic CHF, HTN, heavy smoking, COPD, permanent A-fib on Eliquis, here with right sided weakness and right facial droop with dysarthria. He first noticed the symptoms the evening before admission but decided to go back to sleep and when he awoke in the morning, his noted on the phone his speech sounded slurred and called for an ambulance. He was a stroke alert but was outside the window for tPA. CTA head anc neck in ER without occlusion, but with moderate AUDRA. CT head noncontrast did show a possible hypodensity in rt frontal lobe which would not account for his right sided symptoms on presentation. He clearly had a dramatic right facial droop and dysarthria, along with right sided weakness and was admitted for CVA workup. I discussed his case with Cardiology on the day of admission. History and ROS reviewed Vitals reviewed, quite hypertensive NAD, AAOx3, obese Anicteric sclerae, EOMI, PERRLA +Rt facial droop and speech dysarthric, tongue protruding to the right,+drool coming from right corner of mouth CV: irreg irreg with normal rate, no mgr Pulm: CTAB no wcr Abd +BS soft NT ND Ext no edema Neuro: CN2-12 intact except with right sided facial weakness, tongue protruding to the right, RUE with 4/5 strength throughout, RLE 4/5 strength throughout, LUE and LLE 5/5 strength; +pronator drift RUE, gait not assessed, sensation intact to light touch grossly throughout UEs and LEs Skin-no rashes Labs and rads reviewed ECG with Afib, LVH with repol abnormality, LAFB, prolonged Qtc, no obvious ischemic changes 64 yo male with history as noted above, here with most likely acute ischemic CVA. -admit for stroke workup, brain MRI, ECHO -resident discussed case with Neuro-will continue ASA 81mg daily for now (FL as failed bedside swallow dysphagia screen), and convert to heparin gtt while unable to take po Eliquis. COnsider possible failure of ELiquis and also obese-unclear if Eliquis effective at this weight--> d/w Cardio and will convert to coumadin -BP control needed--> permissive HTN but seems to be BP too high--> add home metoprolol back on and lasix, add on amlodipine and eventually will need lisinopril given chronic systolic CHF -PT/OT/Speech Tx evals -Neuro consult Resident Activity Tracking Resident Involvement: Resident Care Provided Care Provided: Adult Hospital Medicine
--- NOTE | 2019-09-25 10:07 | Electrocardiogram Report ---
Test Reason : Blood Pressure : / mmHG Vent. Rate : 100 BPM Atrial Rate : 089 BPM P-R Int : 000 ms QRS Dur : 112 ms QT Int : 378 ms P-R-T Axes : 000 -48 092 degrees QTc Int : 487 ms Atrial fibrillation Left anterior fascicular block Left ventricular hypertrophy with repolarization abnormality Prolonged QT Abnormal ECG When compared with ECG of 02-FEB-2019 07:18, T wave inversion no longer evident in Inferior leads T wave inversion less evident in Anterolateral leads Confirmed by Valeriy Oscar ([id number]) on 09/25/2019 10:07:02 AM Referred By: REFERRED SELF Confirmed By:Valeriy Oscar
[2019-09-25] MEDS ORDERED: ASPIRIN 300 MG SUPP PR ONE (10:12)
[2019-09-25] MEDS ORDERED: Heparin IV Standard *NO* Bolus IV ONE (10:12)
[2019-09-25] MEDS: HEPARIN SODIUM/DEXTROSE 25,000 UNITS/500 ML BAG IV SCH (11:16)
[2019-09-25] MEDS ORDERED: ACETAMINOPHEN 325 MG TAB PO PRN (12:40)
[2019-09-25] MEDS ORDERED: POLYETHYLENE (MIRALAX) 17 GM PACK PO PRN (12:40)
[2019-09-25] MEDS ORDERED: METOPROLOL TARTRATE 1 MG/ML VIAL IV SCH (12:40)
[2019-09-25] MEDS ORDERED: PHARMACIST DISCHARGE MED REC CONSULT PRN (12:40)
--- NOTE | 2019-09-25 14:42 | Cardiology Consultation ---
Date of Consultation Patient was examined in his room. He is dysarthric. He notes although his is away he has been compliant with his medications and has been taking his apixaban twice a day. He notes he felt normal before he went to bed. He then woke up in the middle the night to assist the dog had difficulty ambulating and was falling. He texted his who did not see the message till early in the morning. She called him and she had difficulty understanding him. Both EMS and a neighbor were called the neighbor found on the patient on the floor. In the emergency room he had symptoms of CVA with dysarthria with right-sided weakness and right-sided facial droop. He was outside the window for TPA. He was hypertensive in the emergency room. He was placed on heparin. He currently denies any chest pain chest pressure chest heaviness. Is unaware of any palpitations or fluttering. He denies any lightheadedness or dizziness. His speech is difficult to understand. He denies any bleeding or bruising. He does not check his blood pressure at home nor does he weigh himself at home. The rest of a complete her systems otherwise negative September 25, 2019 Assessment & Plan (1) Acute CVA (cerebrovascular accident): Acute CVA He is currently on a heparin drip. I would continue this. Unfortunately it appears that he failed apixaban. He is more than 120 kg and the drug may not be as effective at this weight. Given the fact that he failed apixaban if he will be compliant Coumadin is probably a better option at this point. He should remain on aspirin therapy. We will have to follow closely for any progressive neurologic deficits given the possibility of conversion to a hemorrhagic event. Likely this event is related to either atrial fibrillation or an LV apical thrombus. The patient notes he has been compliant with his apixaban even with his away for only 1 day and did not miss any doses Hypertension with severe left ventricular hypertrophy -allowing for permissive HTN Although we are allowing for permissive hypertension he may need adjustment of his antihypertensive regiment especially in light of his current blood pressure. I would continue with metoprolol for rate control. Amlodipine would be a good option to lower his blood pressure. Additionally I would consider nocturnal pulse oximetry to see if he is having significant desaturation at night that would lead to an outpatient sleep study. Given the severity of his LVH he likely has longstanding and severe hypertension. Atrial fibrillation Carotid artery stenosis --moderate -noted on CTA head/neck, will require continued outpatient monitoring Chronic systolic CHF/cardiomyopathy/presumed coronary artery disease -Follows with Dr. Bragg -ECHO in 02/2019 revealed moderate to severely reduced systolic function w/EF of 30-35%, global hypokinesis, and severe LVH. Mild AR, MR and aortic root dilatation noted as well -per cardio notes, pt presumed to have CAD given anterior WMA noted in September 2016 Nicotine dependence/COPD -nicotine patch ordered -COPD noted on medical hx, but does not use inhalers or report respiratory s ymptoms Concern for possible sleep apnea. All this was discussed with the hospitalist service History of Present Illness Attending Physician: Antionette Soni MD Allergies Allergy/AdvReac Type Severity Reaction Status Date / Time No Known Allergies Allergy Unverified 09/25/19 08:02 Home Medications Home Medications Medication Instructions Recorded Confirmed Type aspirin [Aspirin Childrens] 81 mg PO QAM 02/01/19 09/25/19 History apixaban 5 mg tablet 5 mg PO Q12H #180 tab 08/30/19 09/25/19 Rx furosemide [Lasix] 20 mg PO QAM 09/25/19 09/25/19 History metoprolol succinate 100 mg PO QAM 09/25/19 09/25/19 History Patient History Medical History Atrial fibrillation (Acute) COPD (chronic obstructive pulmonary disease) Nicotine addiction Family History Other Family history non-contributory Social History Preferred Language: Icelandic Communication Ability: Effective Staff Radiologist Required: No Beliefs That Will Affect Care: None Current Living Situation: Spouse Feels Safe at Home: Yes Smoking Status: Current every day smoker Tobacco Type: cigarettes ; Cigarettes Per Day: 40 ; Second Hand Exposure: No ; Hx Alcohol Use: No Hx Substance Use: No Results & Data ([facility]) Vital Signs (Past 12 Hours) Vital Signs Temp Pulse Resp BP Pulse Ox 09/25/19 12:40 85 09/25/19 11:10 85 09/25/19 11:01 97 H 179/117 H 09/25/19 11:00 93 H 25 H 09/25/19 10:50 95 H 27 H 09/25/19 10:46 98 H 20 186/112 H 09/25/19 10:42 101 H 16 09/25/19 10:41 95 H 20 182/126 H 09/25/19 10:40 90 17 179/149 H 09/25/19 10:30 108 H 15 167/145 H 09/25/19 10:20 90 17 09/25/19 10:16 94 H 13 180/133 H 09/25/19 10:10 98 H 22 09/25/19 10:01 97 H 15 229/134 H 09/25/19 10:00 108 H 18 09/25/19 09:50 92 H 19 09/25/19 09:45 95 H 19 204/148 H 09/25/19 09:40 104 H 21 09/25/19 09:30 87 17 184/142 H 99 09/25/19 09:20 91 H 17 96 09/25/19 09:17 92 H 18 97 09/25/19 09:16 94 H 22 185/98 H 97 09/25/19 09:10 97 H 20 94 09/25/19 09:01 120 H 22 200/135 H 09/25/19 09:00 127 H 20 09/25/19 08:50 105 H 19 09/25/19 08:49 106 H 21 194/133 H 97 09/25/19 08:46 94 H 17 176/159 H 97 09/25/19 08:40 95 H 13 97 09/25/19 08:31 94 H 17 96 09/25/19 08:30 97 H 20 198/126 H 95 20 08:25 109 H 22 183/126 H 95 20 08:23 114 H 183/126 H 09/25/19 08:20 107 H 20 96 09/25/19 08:10 95 H 18 98 09/25/19 08:02 86 20 95 09/25/19 08:01 96 H 20 167/118 H 97 09/25/19 08:00 102 H 24 97 09/25/19 07:50 111 H 17 09/25/19 07:44 110 H 24 186/128 H 96 09/25/19 07:43 108 H 19 94 09/25/19 07:31 107 H 23 09/25/19 07:30 186/146 H 09/25/19 07:29 107 H 21 95 09/25/19 07:28 97 H 20 156/105 H 09/25/19 07:08 36.6 C 107 H 20 156/105 H 97 He is awake alert and oriented x3 he is dysarthric and his speech is moderately difficult to understand HEENT moderately reduced carotid upstrokes no evidence of carotid bruits jugular venous pressure cannot be assessed due to his neck size next line lungs: Clear to auscultation bilaterally no rales rhonchi or wheezing Heart irregular rate and rhythm no appreciable murmurs rubs or gallops Abdomen soft nontender distended positive bowel sounds obese Extremities no clubbing cyanosis or edema Psychiatric his affect appear appropriate Neurologic as discussed above His inpatient studies were reviewed
[2019-09-25] MEDS ORDERED: WARFARIN SOD 7.5 MG TAB PO ONE (16:00)
[2019-09-25] MEDS: METOPROLOL SUCC 50MG EXT REL TAB PO SCH (16:04)
[2019-09-25] MEDS: ATORVASTATIN 40 MG TAB PO SCH (16:04)
[2019-09-25] MEDS ORDERED: GADOBUTROL 30ML VIAL IV PRN (16:23)
--- NOTE | 2019-09-25 16:44 | Magnetic Resonance Report ---
MRI OF THE BRAIN WITHOUT AND WITH IV CONTRAST CLINICAL HISTORY: Cerebrovascular accident. COMPARISON STUDY: Head CT and CTA of the head performed earlier today. TECHNIQUE: Utilizing a 1.5 Ainsley magnet and dedicated coil, multiplanar, multiecho imaging of the br ain was performed pre and postcontrast administration. IV administration of [address] was uneventful. FINDINGS: Note is made of a 1.5 cm hyperintense focus within the posterior limb of the left internal capsule on axial diffusion-weighted image 16 of 56. This is hypointense on the ADC map. This represen ts a small acute infarct. No additional sites of acute infarction are noted. The ventricular system i s unremarkable for age. Basilar cisterns are patent. There are no extra axial collections. Numerous w myles matter T2 hyperintense foci are noted. Note is made of a suspected old infarct within the left c entrum semiovale ovale. No intracranial mass or pathologic enhancement is noted. There is no acute in tracranial hemorrhage, midline shift or mass effect. Calvarial signal is normal. Orbits are unremarka ble. The possible right frontal lobe infarct on head CT performed earlier today was artifactual. IMPRESSION: 1. Small acute infarct within the posterior limb of the left internal capsule, measuring 1.5 cm. No m ass effect. No acute hemorrhage. 2. No intracranial mass or pathologic enhancement. 3. Moderate small vessel disease. ACT 112: Negative or not required by law. Electronically signed by: Ton Potter M.D. 09/25/2019 4:42 PM
[2019-09-25] MEDS: AMLODIPINE BESYLATE 5 MG TAB PO SCH (17:02)
[2019-09-25 17:32] LABS: Partial Thromboplastin Ratio 1.5; Partial Thromboplastin Time 42.4 Seconds (21.0-31.0)
[2019-09-25] MEDS ORDERED: HEPARIN IV BOLUS 4,000 UNITS in SYRINGE 0 ML IV ONE (19:00)
[2019-09-25] MEDS ORDERED: APIXABAN 5 MG TABLET PO SCH (21:00)
[2019-09-26 02:06] LABS: Basophils # (auto) 0.01 K/uL (0-0.2); Basophils % (auto) 0.1 %; Eosinophils # (auto) 0.05 K/uL (0-0.5); Eosinophils % (auto) 0.5 %; Hemoglobin 16.8 g/dL (14.0-18.0); Immature Granulocytes # (auto) 0.05 K/uL (0.00-0.02); Immature Granulocytes % (auto) 0.5 %; Lymphocytes # (auto) 2.06 K/uL (1.2-3.4); Lymphocytes % (auto) 19.9 %; Mean Corpuscular Hemoglobin 27.9 pg (25-34); Mean Corpuscular Hgb Conc 33.6 g/dL (32-36); Mean Corpuscular Volume 83.1 fL (80-100); Mean Platelet Volume 11.6 fL (7.4-10.4); Monocytes # (auto) 0.97 K/uL (0.11-0.59); Monocytes % (auto) 9.4 %; Neutrophils # (auto) 7.21 K/uL (1.4-6.5); Neutrophils % (auto) 69.6 %; Platelet Count 220 K/uL (130-400); RDW Coefficient of Variation 15.6 % (11.5-14.5); Red Blood Count 6.02 M/uL (4.7-6.1); White Blood Count 10.35 K/uL (4.8-10.8)
[2019-09-26 02:15] LABS: INR 1.2 (0.9-1.1); Prothrombin Time 12.1 Seconds (9.0-12.0)
[2019-09-26] MEDS: HEPARIN SODIUM/DEXTROSE 25,000 UNITS/500 ML BAG IV SCH (02:17)
[2019-09-26 02:24] LABS: BUN Creatinine Ratio 13.3 (10-20); Calcium 8.8 mg/dl (8.5-10.1); Creatinine Clr Calc Pharmacy 110.7 ml/min; Est GFR (African American) 104.7; Est GFR (Non-African American) 90.4; Potassium 3.2 mmol/L (3.5-5.1)
[2019-09-26 02:26] LABS: Partial Thromboplastin Ratio 4.4
[2019-09-26 02:29] LABS: Partial Thromboplastin Time 122.8 Seconds (21.0-31.0)
[2019-09-26] MEDS ORDERED: POTASSIUM CHLORIDE 20 MEQ TABCR PO STA ×2 (04:36→09:08)
[2019-09-26 04:49] LABS: BUN Creatinine Ratio 13.3 (10-20); Calcium 8.8 mg/dl (8.5-10.1); Creatinine Clr Calc Pharmacy 101.5 ml/min; Est GFR (African American) 103.3; Est GFR (Non-African American) 89.1; Magnesium 2.2 mg/dl (1.8-2.4); Phosphorus 2.6 mg/dl (2.5-4.9); Potassium 3.3 mmol/L (3.5-5.1)
[2019-09-26] MEDS: NICOTINE 14 MG/24 HR PATCH TD SCH (07:48)
[2019-09-26] MEDS: ATORVASTATIN 40 MG TAB PO SCH (07:49)
[2019-09-26] MEDS: METOPROLOL SUCC 50MG EXT REL TAB PO SCH (07:49)
[2019-09-26] MEDS: AMLODIPINE BESYLATE 5 MG TAB PO SCH ×2 (07:50→21:30)
[2019-09-26] MEDS ORDERED: ASPIRIN 81 MG CHEW PO SCH (08:00)
[2019-09-26] MEDS ORDERED: AMLODIPINE BESYLATE 5 MG TAB PO ONE (08:57)
--- NOTE | 2019-09-26 09:17 | Neurology Consultation ---
Date of Consultation September 26, 2019 Assessment & Plan (1) Acute CVA (cerebrovascular accident): (2) Acute right hemiparesis: (3) Dysarthria: (4) Hypertension: (5) Atrial fibrillation: Patient has had an acute left internal capsule stroke resulting in pure motor weakness of right face and arm greater than leg. There is also a significant dysarthria, but no specific aphasia. The etiology of this stroke is likely small vessel ischemic disease and not cardioembolic (given its location), although that cannot entirely be excluded. Therefore, I am not convinced that this was an Eliquis failure. Echocardiogram is pending. This is more likely due to small vessel ischemic disease from hypertension (which was not controlled on admission) and chronic cigarette smoking (2 packs a day for 50 years). Therefore, this may be more about an aspirin failure. MRI of the brain also shows moderate old small vessel ischemic disease. He does not have other significant stroke risk factors including diabetes or dyslipidemia, although hemoglobin A1c is pending. The patient has a history of atrial fibrillation with a variable rate although more controlled this morning. Recommendations: 1. Control blood pressure as you are doing, aiming for a mean arterial pressure of approximately 100. 2. I am not convinced converting him to Coumadin is in the patient's best interest, especially now with his stroke and fall risk secondary to right lower extremity weakness. If this is truly small vessel ischemic disease (from hypertension and cigarette smoking) then he could be put back on Eliquis or Xarelto. 3. Consider switching 81 milligram aspirin to clopidogrel 75 milligrams daily 4. Discontinue cigarette smoking. This is going to be very difficult for the patient and he will need help in doing this. 5. Awaiting echocardiogram and hemoglobin A1c results. 6. Sling right upper extremity when up to prevent stretching/dislocation at the right shoulder. 7. Physical, occupational, and speech therapy consultations. I believe this patient would be an excellent candidate for the rehabilitation hospital once medically stable. 8. Patient has possible sleep apnea and would benefit from an overnight polysomnogram as an outpatient. Overall, I spent a total of 105 minutes with this case including review of records, review of MRI films, direct evaluation the patient at bedside, and discussion of the case with the patient at bedside, RN and physical therapist at bedside, and Dr. Martines at bedside, including differential diagnosis and treatment options. History of Present Illness Reason for Consultation: Patient is a 64-year-old, who I was asked to see at the request of Dr. Kee, for neurologic consultation regarding stroke Requesting Physician: Dr. Kee Attending Physician: Ha Fajardo, History of Present Illness Patient has a history of atrial fibrillation, chronic systolic congestive heart failure, hypertension, dyslipidemia, coronary artery disease, cardiomyopathy, and aortic valve insufficiency followed by Dr. Bragg. He is a long-time cigarette smoker. Prior to admission he was on Eliquis, 81 milligram aspirin, 100 milligrams metoprolol, and Lasix 20 milligrams daily. Patient went to bed on September 23 around 9 o'clock in the evening feeling in his usual state of health. At 0230 on September 24 he awoke to let the dogs out. He got out of bed let them out feeling fine. He came back up stairs then went to the bathroom but fell because his right leg gave out. He felt weak in the right arm and had noted that his speech was slurred when he was talking to the dogs. He believed that time that he might be having a stroke but decided to go downstairs and smoke a cigarette. By the time morning came he was still having right-sided weakness and slurred speech. He arrived to the emergency room on September 24 at 0708 with a blood pressure 156/105, temperature 36.6, pulse 107, respiratory rate 20, and O2 saturation 97 percent. He was in atrial fibrillation. Exam revealed right facial droop, right-sided weakness and expressive aphasia. CBC and Chem profile were unremarkable although the glucose was 122 and alkaline phos 132. Chest x-ray was remarkable for moderate cardiomegaly of an old nature. CT scan of the head showed a questionable right frontal lesion but showed no hemorrhage CT angiography of the head and neck were unremarkable for any significant stenoses or vessel anomalies except there was some 60 percent stenosis in the proximal left internal carotid artery and 40 percent stenosis in the proximal right internal carotid artery. There was same plaque in the cavernous portions of the carotids bilaterally. MRI of the brain revealed a small acute left internal capsule stroke. There was mild generalized atrophy with moderate old ischemic changes. I reviewed these films. He was put on heparin and Eliquis was stopped. The patient was felt to be a Eliquis failure by Cardiology and that this was probably embolic from the heart. He was put on Coumadin and heparin would be kept until he was converted on the Coumadin. Aspirin was kept the same at 81 milligrams daily. This morning the patient feels that his speech is slightly improved but that his right upper extremity is weaker. There is right leg may be a little bit stronger than yesterday. Blood pressure this morning was 205/98 Repeat CBC and Chem profile were unremarkable although potassium was mildly low. Total cholesterol was 166 and triglycerides 116 on no lipid medication. Allergies Allergy/AdvReac Type Severity Reaction Status Date / Time No Known Allergies Allergy Unverified 09/25/19 08:02 Home Medications Home Medications Medication Instructions Recorded Confirmed Type aspirin [Aspirin Childrens] 81 mg PO QAM 02/01/19 09/25/19 History apixaban 5 mg tablet 5 mg PO Q12H #180 tab 08/30/19 09/25/19 Rx furosemide [Lasix] 20 mg PO QAM 09/25/19 09/25/19 History metoprolol succinate 100 mg PO QAM 09/25/19 09/25/19 History Patient History Medical History (Updated 09/26/19 @ 09:07 by Gordon Jimenes MD) Atrial fibrillation (Acute) COPD (chronic obstructive pulmonary disease) Nicotine addiction Surgical History S/P tonsillectomy Family History Mother Hypertension Father , age 52 of an [place] Myocardial infarction Other Family history non-contributory Social History Preferred Language: Lithuanian Communication Ability: Impaired Rod Mill Operator Required: No Beliefs That Will Affect Care: None Current Living Situation: Spouse current occupational status: retired 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 Feels Safe at Home: Yes Safety Concerns: Feels Safe At This Time Smoking Status: Current every day smoker Tobacco Type: cigarettes ; Age Started Using Tobacco: 13 ; Cigarettes Per Day: 40 ; Second Hand Exposure: No ; Hx Alcohol Use: No (Former heavy alcohol user) Hx Substance Use: No Review of Systems Constitutional: no fever, no fatigue and no weakness Eyes: no diplopia, no eye pain and no worsening vision Ear, Nose, Mouth, Throat: no ear pain, no tinnitus, no hearing loss, no dizziness, no hoarseness and no dysphagia Respiratory: + dyspnea on exertion; no cough Cardiovascular: + lightheadedness (With standing); no chest pain and no palpitations Gastrointestinal: no abdominal pain, no nausea and no vomiting Genitourinary: no dysuria and no urinary incontinence Musculoskeletal: no back pain, no neck pain, no radicular pain, no joint pain and no myalgia Integumentary: no rash and no lesions Neurologic: + gait abnormality, + localized weakness and + abnormal speech; no generalized weakness, no tingling, no numbness, no tremor(s), no abnormal movements, no headache(s), no confusion and no memory loss Psychiatric: no depression, no irritability, no anxiety, no difficulty concentrating, no confusion and no hallucinations Endocrine: no fatigue and no flushing Hematologic / Lymphatic: no easy bleeding and no easy bruising Allergy / Immunological: no urticaria and no problem reported Exam (Neuro) Physical Exam: The patient is right-handed. The patient is awake, alert, and attentive. Speech is considerably dysarthric but I do not detect any specific a facial. he can name objects, repeat phrases, and has normal spontaneous speech. Mentation and thought processes are intact, with orientation to person, place and time, and normal fund of knowledge. Attention and concentration are normal. Mood and affect are normal and appropriate. General appearance and grooming are normal. Short and long-term memory are intact to conversation. The discs are sharp with positive venous pulsations bilaterally. There are no exudates, hemorrhages, or blood vessel changes seen. Pupils are 4 mm bilaterally and reactive to light. Extraocular eye muscles are intact without nystagmus. Visual acuity and visual evans seem normal grossly to confrontation. There are no deficits to sensation in the face in all 3 distributions of the fifth cranial nerve bilaterally. Corneal reflexes are positive bilaterally. There is a dense facial droop on the right. Forehead is normal and symmetrical bilaterally. Hearing seems normal to whisper and finger rub bilaterally. Palate moves well without asymmetry. There is normal sternocleidomastoid and trapezius (shoulder shrug) strength bilaterally. Tongue is midline with good strength bilaterally. Neck has a full range of motion without discomfort. There are no cervical bruits bilaterally. There are no cranial or ocular bruits. Heart is without murmur. There is a regular rhythm and rate. Cervical, thoracic, and lumbar spine are nontender to palpation. Gait difficult as he cannot put normal weight on his right leg. With stance he tends to sway to the right because of his weak right leg and has a little bit dizzy with standing. With outstretched arms there is no drift on the left. The right upper extremity is very weak. There are no resting, postural, or action tremors. There is no ataxia with finger to nose testing. There is marked decreased facility in the right hand compared to the left which was normal. No other abnormal involuntary movements were noted. Motor strength is 5/5 diffusely in the left upper extremity including deltoids, biceps, triceps, brachioradialis, wrist flexors and extensors, boiler coverer helper, and intrinsic hand muscles. Strength is 4/5 in the biceps and deltoid muscles, and 4+/5 in the triceps on the right. Strength is 1/5 in wrist flexors and extension, boiler coverer helper, and intrinsic hand muscles. Motor strength is 5/5 diffusely in the left lower extremity including hip flexors, quadriceps, hamstrings, gastrocnemius, tibialis anterior, tibialis posterior, and Peroneii muscles. Right lower extremity strength is 4/5 proximally and 3/5 distally. The limbs have good tone without rigidity or spasticity. There is no atrophy noted in the muscles. Muscle bulk is normal, there is no tenderness to palpation, no myotonia to percussion, and no fasciculations seen. Sensory examination is intact to touch and pin throughout all 4 limbs diffusely. Reflexes are 2/4 in the biceps, triceps, brachioradialis, and quadriceps tendons bilaterally. Achilles tendon reflexes are 1/4 bilaterally. There is no clonus bilaterally. Toes are downgoing with plantar stimulation on the left and upgoing with plantar stimulation on the right. Peripheral pulses are present and of normal quality distally in all 4 limbs. T here is no peripheral edema noted in the limbs. Results & Data ([facility]) Vital Signs (Past 12 Hours) Vital Signs Temp Pulse Pulse Resp BP Pulse Ox 09/26/19 08:00 78 09/26/19 07:39 36.8 C 79 20 205/98 H 94 09/26/19 02:34 36.9 C 72 24 175/99 H 93 09/26/19 00:00 85 09/25/19 23:32 36.6 C 70 20 164/89 H 93 Diagnostic Findings MRI OF THE BRAIN WITHOUT AND WITH IV CONTRAST CLINICAL HISTORY: Cerebrovascular accident. COMPARISON STUDY: Head CT and CTA of the head performed earlier today. TECHNIQUE: Utilizing a 1.5 Ainsley magnet and dedicated coil, multiplanar, multiecho imaging of the brain was performed pre and postcontrast administration. IV administration of 12 mL of Gadavist contrast was uneventful. FINDINGS: Note is made of a 1.5 cm hyperintense focus within the posterior limb of the left internal capsule on axial diffusion-weighted image 16 of 56. This is hypointense on the ADC map. This represents a small acute infarct. No additional sites of acute infarction are noted. The ventricular system is unremarkable for age. Basilar cisterns are patent. There are no extra axial collections. Numerous white matter T2 hyperintense foci are noted. Note is made of a suspected old infarct within the left centrum semiovale ovale. No intracranial mass or pathologic enhancement is noted. There is no acute intracranial hemorrhage, midline shift or mass effect. Calvarial signal is normal. Orbits are unremarkable. The possible right frontal lobe infarct on head CT performed earlier today was artifactual. IMPRESSION: 1. Small acute infarct within the posterior limb of the left internal capsule, measuring 1.5 cm. No mass effect. No acute hemorrhage. 2. No intracranial mass or pathologic enhancement. 3. Moderate small vessel disease. ACT 112: Negative or not required by law. Electronically signed by: Ton Potter M.D. 09/25/2019 4:42 PM PG Care Time/CCT Total # of Minutes Spent Total Time Spent with Patient: Total time spent is greater than 50% in coordination of care (as documented) at patient's floor/unit and/or counseling patient: Coding Level of Care Code 77027 Initial Inpt Care Lvl 3 Diagnoses Acute CVA (cerebrovascular accident) I63.9 Acute right hemiparesis G81.91 Dysarthria R47.1 Hypertension I10 Hypertension type: essential hypertension Atrial fibrillation I48.91 Atrial fibrillation type: unspecified Time Spent (min) 105 Comment Add [id number] to this [id number] (1) Hypertension Hypertension type: essential hypertension Qualified Code(s): I10 - Essential (primary) hypertension (2) Atrial fibrillation Atrial fibrillation type: unspecified Qualified Code(s): I48.91 - Unspecified atrial fibrillation
[2019-09-26] MEDS: lisinopriL 10 MG TAB PO SCH (09:31)
[2019-09-26] MEDS: APIXABAN 5 MG TABLET PO SCH ×2 (09:31→21:30)
--- NOTE | 2019-09-26 09:53 | Family Medicine Progress Note ---
Date of Service September 26, 2019 Assessment & Plan (1) Acute CVA (cerebrovascular accident): Mr. Francisco is a 64-year-old male with a past medical history of coronary artery disease, atrial fibrillation, COPD, hypertension, systolic CHF with an ejection fraction of 30-35%, cardiomyopathy and nicotine dependence who presented to [facility] due to sudden onset of right-sided weakness. ED course: 5mg IV Lopressor, 14mg TD nicotine patch Acute CVA: - Admitted yesterday with examination consistent with acute ischemic CVA -> patient w/ R sided facial droop and R sided UE and LE weakness - CT brain: no evidence of hemorrhage. ?hypodense focus within the right frontal lobe -> query artifact or a small acute infarct. - CTA head & neck: Moderate atherosclerotic plaque within the bilateral cavernous carotids and within the proximal bilateral internal carotid arteries. 60% stenosis of the proximal left internal carotid artery and 40% stenosis of the proximal right internal carotid artery. - MRI with and without contrast ordered -> small acute infarct within the posterior limb of the left internal capsule, measuring 1.5 cm. No mass effect. No acute hemorrhage. - ECHO ordered, pending. - Neurology consulted and appreciate recommendations: -> Given findings on MRI this is likely a stroke 2/2 smoking hx and significant HTN. -> Discontinue aspirin for Plavix 75mg daily. -> Control HTN for goal MAP <100, continue Eliquis (unlikely to be Eliquis failure given findings on MRI)., encourage smoking cessation, cholesterol and BSG management. - Patient failed dysphagia screen in ER, passed speech eval on floor and has soft diet ordered, tolerating well. - PT/OT/Speech evals ordered. - Lipid panel ordered -> TG 116, HDL 32, LDL 111, total cholesterol 166. -> Have initiated 40mg of atorvastatin given s/p CVA. - HbA1c ordered -> pending. BSG 107 on BMP. - Stressed smoking cessation to this patient. He has 100 pack year history and has been smoking since his mid-teens. -> Daily nicotine patches. Will need follow up outpatient to help him achieve his goals. - For likely acute rehab following discharge for continued PT/OT/Speech therapy. Hypertension - Allowing for permissive HTN, however goal MAP <100. - Cardiology consult ordered for HTN, Afib, stroke and appreciate recommendations: -> Increase amlodipine to 5mg BID, addition of lisinopril 10mg daily. Resume Lasix if continued HTN. -> Likely needs CPAP at home, expect patient has GAMAL given significant LVH on Echo and significant HTN. -> CPAP started inpatient, will need formal sleep study at acute rehab to qualify for home CPAP. Atrial fibrillation - Pt initially thought to be Eliquis failure 2/2 stroke, Eliquis held and Heparin gtt started to transition to warfarin. - After MRI report and discussing with Neurology this is unlikely to be 2/2 Eliquis failure, have resumed Eliquis 5mg BID and stopped Heparin and warfarin. - Telemetry shows patient in AFib no RVR. -> Continue rate control with metoprolol 100mg BID. -> Eliquis 5mg BID for anticoagulation. - Continue to monitor on telemetry. Carotid artery stenosis - Noted on CTA head/neck, will require continued outpatient monitoring. Chronic systolic CHF/cardiomyopathy/presumed coronary artery disease - Follows with Dr. Bragg. - Echo in 02/2019 revealed moderate to severely reduced systolic function w/EF of 30-35%, global hypokinesis, and severe LVH. Mild AR, MR and aortic root dilatation noted as well. - Per cardio notes, pt presumed to have CAD given anterior WMA noted in September 2016. - Allowing for permissive HTN, will resume Lasix as able. - Patient appears euvolemic on examination, however dry weight was listed as 106kg in 03/2019 and patient is 122kg on admission. Weight 110kg today, unclear accurate weight, likely 2/2 different measuring systems. - CXR with evidence of mild pulmonary vascular congestion. Pt w/out respiratory complaints. - Cardiology consult requested as above. Nicotine dependence/COPD - Nicotine patch ordered. - COPD noted on medical hx, but does not use inhalers or report respiratory symptoms. -> Would likely benefit from daily LABA, PRN albuterol. CODE STATUS: Full DVT prophylaxis: Eliquis 5mg BID FEN/GI: Heart Healthy Disposition: Telemetry Anticipate discharge to rehab. PT/OT/Speech therapy following (2) Carotid artery stenosis: (3) Chronic systolic (congestive) heart failure: (4) Cardiomyopathy: (5) CAD (coronary artery disease): (6) Hypercholesterolemia: (7) Hypertension: (8) COPD (chronic obstructive pulmonary disease): (9) Nicotine dependence: (10) Atrial fibrillation: Admission and Anticipated Discharge Date Admission Date: September 25, 2019 Supervising Physician Co-Signing Physician Notes Patient seen and examined with Dr. Hilario. I agree with her exam findings, review of systems, assessment and plan. I have personally reviewed the lab work and imaging from today. patient pleasant, feels like he is getting slightly better able to eat, take medications by mouth, right arm is still profoundly weak right leg is strong, able to stand and walk discussed with Dr. Jimenes and Dr. Oscar today, appreciate their input BP quite elevated this morning, too high for permissive HTN, treated with norvasce and lisinopril, seeing improvement discussed plan for rehab with patient, he agrees Exam: WD WN male, NAD lungs CTA bilaterally, normal effort heart regular S1/S2, no murmurs, no edema neurological: dysarthria, can still communicate quite well, EOM intact, intact gag left sided strength intact, right hand education coordinator 2/5, right biceps 3/5, right upper arm 2/5, right leg 5/5 - Acute ischemic stroke, left internal capsule, 1.3cm d/w Dr. Jimenes, most likely cause is small vessel thrombosis, setting of uncontrolled hypertension some discussion as to whether this could be Eliquis failure but he should be adequately dosed for 110kg secondary stroke prevention with BP control, statin, antiplatelet therapy, anticoagulation BP better on Norvasc 5mg BID and lisinopril anticoagulated on Eliquis BID Lipitor 40mg daily aspirin changed to Plavix 75mg daily plan for rehab on discharge, could be ready tomorrow, CM involved in planning time with patient was 37 minutes Subjective Pt with brief run of VTach overnight while sleeping, did not feel the event. Has otherwise been without acute events overnight. No changes in weakness, speech since yesterday. Saw patient in the room with Dr. Jimenes present, were discussing how important smoking cessation is to his health and to decrease risk of strokes moving forward. Pt was a bit hesitant, saying " well I got rid of drinking, that was once of my vices. Smoking is the only one left". Reiterated that his imaging suggests his blood pressure and his smoking were to blame for his stroke and that while we can help him control cholesterol, BSG, and HTN, we cannot control if he smokes. No CP, SOB, nausea, vomiting. Eating okay on soft diet. Feels weak on right side and has continued slurred speech. Watched patient sit to standing with nursing and physical therapist assistance and he reported feeling "very odd and wobbly" on the right side. Review of Systems Constitutional: no fever and no fatigue Eyes: no diplopia Ear, Nose, Mouth, Throat: no dizziness, no hoarseness and no dysphagia Respiratory: no cough, no dyspnea and no wheezing Cardiovascular: + lightheadedness (With standing, returned to normal with sitting); no chest pain and no palpitations Gastrointestinal: no abdominal pain, no nausea and no vomiting Genitourinary: no dysuria and no urinary incontinence Musculoskeletal: no back pain, no neck pain and no radicular pain Integumentary: no rash Neurologic: + gait abnormality, + localized weakness (RUE, RLE) and + abnormal speech; no generalized weakness, no tingling, no numbness, no tremor(s), no abnormal movements, no headache(s), no confusion and no memory loss Psychiatric: no confusion Physical Exam Constitutional: WD/WN, vitals as above Eyes: PERRL, conjunctivae normal, anicteric sclerae ENMT: external ear and nose normal, oropharynx normal R sided facial droop Respiratory: normal respiratory effort, lungs clear to auscultation Cardiovascular: HR irregularly irregular, no murmurs Gastrointestinal (Abdomen): normal bowel sounds, soft, nontender, no hepatosplenomegaly Musculoskeletal: 4/5 strength of right upper and lower extremity, 5/5 strength of left side Watched stand and visualized him unsteady on feet secondary to sensation of weakness on right side R shoulder and arm with drooping Skin: no rashes, warm and dry Neurologic: Motor/Sensory: no tremor + slurred speech + Right-sided facial droop + bilateral sensation intact Psychiatric: A+Ox3, euthymic affect Results & Data ([facility]) Vital Signs (Past 12 Hours) Vital Signs Temp Pulse Pulse Resp BP Pulse Ox 09/26/19 08:00 78 09/26/19 07:39 36.8 C 79 20 205/98 H 94 09/26/19 02:34 36.9 C 72 24 175/99 H 93 09/26/19 00:00 85 09/25/19 23:32 36.6 C 70 20 164/89 H 93 Resident Activity Tracking Resident Involvement: Resident Care Provided Care Provided: Adult Hospital Medicine (1) Atrial fibrillation Atrial fibrillation type: unspecified Qualified Code(s): I48.91 - Unspecified atrial fibrillation
--- NOTE | 2019-09-26 11:23 | Cardiology Progress Note ---
Date of Service September 26, 2019 Subjective Speech is more difficult to understand, BP worse, Witnessed apnea at bedside, No Cp or Palps, mild SOB, still with right sided weakness Results & Data Vital Signs (Past 12 Hours) Vital Signs Temp Pulse Pulse Resp BP Pulse Ox 09/26/19 08:00 78 09/26/19 07:39 36.8 C 79 20 205/98 H 94 09/26/19 02:34 36.9 C 72 24 175/99 H 93 09/26/19 00:00 85 09/25/19 23:32 36.6 C 70 20 164/89 H 93 Assessment & Plan (1) Acute CVA (cerebrovascular accident): Acute CVA In d/w Neurology, based on the MRI this is a lacunar small vessel CVA from HTN and Tobacco abuse. Ok with Apixaban BID and Plavix Hypertension with severe left ventricular hypertrophy Markedly HTN, Increase Norvasc to 5mg BID, lisinopril added, lasix restarted we will not be able to control HTN until sleep apnea treated Consider CPAP while in hospital for sleep and naps Atrial fibrillation -- rate control Carotid artery stenosis --moderate -noted on CTA head/neck, will require continued outpatient monitoring Chronic systolic CHF/cardiomyopathy/presumed coronary artery disease -Follows with Dr. Bragg -ECHO in 02/2019 revealed moderate to severely reduced systolic function w/EF of 30-35%, global hypokinesis, and severe LVH. Mild AR, MR and aortic root dilatation noted as well -per cardio notes, pt presumed to have CAD given anterior WMA noted in September 2016 Nicotine dependence/COPD -nicotine patch ordered -COPD noted on medical hx, but does not use inhalers or report respiratory symptoms All this was discussed with the hospitalist service He is awake alert and oriented x3 he is dysarthric and his speech is difficult to understand HEENT moderately reduced carotid upstrokes no evidence of carotid bruits jugular venous pressure cannot be assessed due to his neck size next line lungs: Clear to auscultation bilaterally no rales rhonchi or wheezing Heart irregular rate and rhythm no appreciable murmurs rubs or gallops Abdomen soft nontender distended positive bowel sounds obese Extremities no clubbing cyanosis or edema Psychiatric his affect appear appropriate Neurologic as discussed above His inpatient studies were reviewed
[2019-09-26] MEDS ORDERED: HydrALAZINE HCL 20 MG/ML VIAL IV PRN ×2 (12:37→16:36)
--- NOTE | 2019-09-26 13:08 | Electrocardiogram Report ---
Test Reason : Blood Pressure : / mmHG Vent. Rate : 088 BPM Atrial Rate : 072 BPM P-R Int : 000 ms QRS Dur : 112 ms QT Int : 408 ms P-R-T Axes : 000 -51 256 degrees QTc Int : 493 ms Atrial fibrillation Left anterior fascicular block Voltage criteria for left ventricular hypertrophy Nonspecific ST and T wave abnormality Prolonged QT Abnormal ECG When compared with ECG of 25-SEP-2019 07:26, Nonspecific T wave abnormality now evident in Inferior leads Confirmed by Valeriy Oscar ([id number]) on 09/26/2019 1:08:30 PM Referred By: REFERRED SELF Confirmed By:Valeriy Oscar
--- NOTE | 2019-09-26 22:18 | Billing Data ---
Date of Service September 26, 2019 Coding Level of Care Code 39218 Initial Inpt Care Lvl 3
[2019-09-27 06:41] LABS: Estimated Average Glucose 128 mg/dl; Hemoglobin A1C 6.1 % (4.5-5.6)
[2019-09-27 06:50] LABS: Basophils # (auto) 0.02 K/uL (0-0.2); Basophils % (auto) 0.3 %; Eosinophils # (auto) 0.08 K/uL (0-0.5); Hematocrit (blood only) 49.7 % (42-52); Hemoglobin 16.7 g/dL (14.0-18.0); Immature Granulocytes # (auto) 0.04 K/uL (0.00-0.02); Immature Granulocytes % (auto) 0.5 %; Lymphocytes # (auto) 1.62 K/uL (1.2-3.4); Lymphocytes % (auto) 20.3 %; Mean Corpuscular Hemoglobin 28.1 pg (25-34); Mean Corpuscular Hgb Conc 33.6 g/dL (32-36); Mean Corpuscular Volume 83.7 fL (80-100); Mean Platelet Volume 11.7 fL (7.4-10.4); Monocytes # (auto) 0.86 K/uL (0.11-0.59); Monocytes % (auto) 10.8 %; Neutrophils # (auto) 5.37 K/uL (1.4-6.5); Neutrophils % (auto) 67.1 %; Platelet Count 174 K/uL (130-400); RDW Coefficient of Variation 15.8 % (11.5-14.5); RDW Standard Deviation 47.7 fL (36.4-46.3); Red Blood Count 5.94 M/uL (4.7-6.1); White Blood Count 7.99 K/uL (4.8-10.8)
[2019-09-27 07:18] LABS: BUN Creatinine Ratio 19.1 (10-20); Calcium 9.2 mg/dl (8.5-10.1); Creatinine Clr Calc Pharmacy 103.6 ml/min; Est GFR (African American) 104.7; Est GFR (Non-African American) 90.4; Potassium 3.3 mmol/L (3.5-5.1)
[2019-09-27] MEDS: METOPROLOL SUCC 50MG EXT REL TAB PO SCH (08:31)
[2019-09-27] MEDS: lisinopriL 10 MG TAB PO SCH (08:31)
[2019-09-27] MEDS: ATORVASTATIN 40 MG TAB PO SCH (08:31)
[2019-09-27] MEDS: AMLODIPINE BESYLATE 5 MG TAB PO SCH (08:32)
[2019-09-27] MEDS: APIXABAN 5 MG TABLET PO SCH (08:32)
[2019-09-27 08:41] LABS: Magnesium 2.4 mg/dl (1.8-2.4)
[2019-09-27] MEDS ORDERED: CLOPIDOGREL BISULFATE 75 MG TAB PO SCH (09:00)
[2019-09-27] MEDS ORDERED: AMLODIPINE BESYLATE 5 MG TAB PO SCH (09:00)
[2019-09-27] MEDS: NICOTINE 14 MG/24 HR PATCH TD SCH (10:42)
[2019-09-27] MEDS ORDERED: FUROSEMIDE 20 MG TAB PO SCH (11:00)
[2019-09-27] MEDS ORDERED: ALBUTEROL HFA 8 GM INHALER INH PRN (11:06)
--- NOTE | 2019-09-27 11:17 | Neurology Progress Note ---
Date of Service September 27, 2019 Assessment & Plan (1) Acute CVA (cerebrovascular accident): (2) Acute right hemiparesis: (3) Dysarthria: (4) Hypertension: (5) Atrial fibrillation: Patient had an acute left internal capsule stroke 09/24, resulting in pure motor weakness of right face and arm, greater than leg. There is also a significant dysarthria, but no specific aphasia. Today he seems slightly improved compared to yesterday except the right upper extremity which distally is profoundly weak. The etiology of this stroke is likely small vessel ischemic disease resulting from hypertension and chronic cigarette smoking. Although not completely excluded, embolic stroke is considered less likely given the location of the stroke. In addition, MRI of the brain also shows moderate old small vessel ischemic disease. He still has hypertension. He does not have other significant stroke risk factors including diabetes or dyslipidemia, although hemoglobin A1c was slightly elevated at 6.1. The patient has a history of atrial fibrillation with a variable rate although more controlled this morning. Recommendations: 1. Control blood pressure as you are doing, aiming for a mean arterial pressure of approximately 100. 2. Continue apixaban 5 milligrams twice daily. 3. Clopidogrel 75 milligrams daily instead of aspirin 81 milligrams daily. 4. Discontinue cigarette smoking. This is going to be very difficult for the patient and he will need help in doing this. 5. Consider echocardiogram. 6. Sling right upper extremity when up to prevent stretching/dislocation at the right shoulder. 7. Continue physical, occupational, and speech therapy consultations. I believe this patient would be an excellent candidate for the rehabilitation hospital once medically stable. 8. Patient has possible sleep apnea and would benefit from an overnight polysomnogram as an outpatient. Overall, I spent a total of 35 minutes with this case including review of records, direct evaluation the patient at bedside, and discussion of the case with the patient at bedside, RN at bedside, and Dr. Martines at bedside, including differential diagnosis and treatment options. Admission and Anticipated Discharge Date Admission Date: September 25, 2019 Subjective Without pain or headache this morning. He is not dizzy. He believes his weakness is about the same as yesterday. His speech is still slurred. Nursing reports no new events. He is in atrial fibrillation with a pulse in the 90s this morning. Blood pressure this morning was 168/97. CBC and Chem profile were unremarkable although potassium was 3.3 still. Hemoglobin A1c was 6.1. Results & Data ([facility]) Vital Signs (Past 12 Hours) Vital Signs Temp Pulse Resp BP Pulse Ox 09/27/19 08:00 36.6 C 93 H 20 168/97 H 95 09/27/19 04:07 36.5 C 82 19 144/83 H 95 09/26/19 23:15 36.4 C L 83 18 154/73 H 95 Exam (Neuro) Physical Exam: He is awake and alert. He still has dysarthria as he did yesterday although I think it is slightly improved today. He has no aphasia. Extraocular eye muscles are intact without nystagmus. He has facial droop on the left as before but it may not be quite as dense today as it was yesterday. Left side is 5/5 diffusely both proximally and distally with strength. 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 Right lower extremity strength is 4/5 diffusely. PG Care Time/CCT Total # of Minutes Spent Total Time Spent with Patient: Total time spent is greater than 50% in coordination of care (as documented) at patient's floor/unit and/or counseling patient: Coding Level of Care Code 40608 Subseq Hosp Care Lvl 3 Diagnoses Acute CVA (cerebrovascular accident) I63.9 Acute right hemiparesis G81.91 Dysarthria R47.1 Hypertension I10 Hypertension type: essential hypertension Atrial fibrillation I48.91 Atrial fibrillation type: unspecified Time Spent (min) 35 (1) Hypertension Hypertension type: essential hypertension Qualified Code(s): I10 - Essential (primary) hypertension (2) Atrial fibrillation Atrial fibrillation type: unspecified Qualified Code(s): I48.91 - Unspecified atrial fibrillation
[2019-09-27] MEDS ORDERED: UMECLIDINIUM BROMIDE 62.5MCG/BLISTER 7 PUFFS/INHALER INH SCH (12:00)
--- NOTE | 2019-09-27 13:33 | Fluoroscopy Report ---
FL video swallow CLINICAL HISTORY: 64 years-old Male with r/o aspiration. Acute dysphasia with cough TECHNIQUE: Video fluoroscopic evaluation of swallowing was performed in the AP and lateral projection s by the speech pathology staff. The patient is fed nectar-thick and thin liquid barium, a barium coa corinna wafer, and barium pudding. FLUOROSCOPY TIME: 1.4 minutes. COMPARISON STUDY: Chest radiograph 09/25/2019 FINDINGS: There is normal hyoid excursion and epiglottic deflection. No significant penetration or as piration identified. Swallowing function is within normal limits. IMPRESSION: 1. No aspiration identified. 2. Please see the speech pathologist report for detailed findings and recommendations. ACT 112: Negative or not required by law. Electronically signed by: Shilo Castillo M.D. 09/27/2019 1:32 PM
[2019-09-27] MEDS ORDERED: STROKE PATIENT DISCHARGE STA (14:58)
--- NOTE | 2019-09-27 15:01 | Discharge Summary ---
Date of Service September 27, 2019 Admission HPI Per Admitting Provider Mr. Francisco is a 64-year-old male with a past medical history of coronary artery disease, atrial fibrillation, COPD, hypertension, systolic CHF with an ejection fraction of 30-35%, cardiomyopathy and nicotine dependence who presented to [facility] due to sudden onset of right-sided weakness. He states he went to bed at approximately 11:30 p.m., and awoke at 2:30 a.m. to let out his dogs. He reports that at this time, he had sudden onset of weakness, resulting in a fall. He denies hitting his head or loss of consciousness. He denies any chest pain, shortness of breath, or lightheadedness prior to the fall. At this time, he also noted a facial droop in the mirror, and difficulty speaking. He was able to call 911, and the paramedics at this time noted right- sided weakness, slurred speech, and a facial droop. He denies a prior history of a stroke. He states that he is otherwise been feeling well. He reports he lives at home with his , who is currently out of town and driving in. With regards to his past medical history, he follows with Dr. Bragg for his cardiac disease. He states he has been compliant with taking his medications. Of note, Dr. Bragg had sent in a prescription for him for lisinopril in March 2019. He states that he never picked this up. He states that he has not been on a cholesterol medication before. Of note, he smokes 2 packs of cigarettes a day, and has been smoking since age 16. Admission Exam Per Admitting Provider Constitutional: WD/WN, vitals as above Eyes: PERRL, conjunctivae normal, anicteric sclerae ENMT: external ear and nose normal, oropharynx normal Respiratory: normal respiratory effort, lungs clear to auscultation Cardiovascular: RRR, no murmur, no edema Gastrointestinal (Abdomen): normal bowel sounds, soft, nontender, no hepatosplenomegaly Musculoskeletal: 4/5 strength of right upper and lower extremity, 5/5 strength of left side Skin: No rashes, warm and dry Neurologic: Motor/Sensory: no tremor + expressive aphasia + Right-sided facial droop + Coordination impaired on right side, noted with [id number] test + Dysdiadochokinesia on right side + Mild pronator drift noted to right arm Psychiatric: A+Ox3, euthymic affect Principal Diagnosis Acute CVA Discharge Exam Constitutional: WD/WN, vitals as above Eyes: PERRL, conjunctivae normal, anicteric sclerae ENMT: external ear and nose normal, oropharynx normal R sided facial droop Respiratory: normal respiratory effort, lungs clear to auscultation Cardiovascular: HR irregularly irregular, no murmurs Gastrointestinal (Abdomen): normal bowel sounds, soft, nontender, no hepatosplenomegaly Musculoskeletal: 4/5 strength of RUE and RLE, 3/5 strength with 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, 5/5 strength LUE and LLE Watched stand and visualized him unsteady on feet secondary to sensation of weakness on right side R shoulder and arm with drooping Skin: no rashes, warm and dry Neurologic: Motor/Sensory: no tremor + slurred speech + Right-sided facial droop + bilateral sensation intact Psychiatric: A+Ox3, euthymic affect Discharge Data Allergies Allergy/AdvReac Type Severity Reaction Status Date / Time No Known Allergies Allergy Unverified 09/25/19 08:02 Consultations 09/25/19 08:18 ED Decision to Admit Stat 09/25/19 12:40 Consult Cardiology Routine Consult Case Management - Discharge Planning Routine Consult Neurology Routine Ordered Studies 09/25/19 07:08 CT angio head w con Stat CT angio neck with con Stat CT head/brain wo con Stat 09/25/19 11:18 MR brain wo/w con Routine 09/27/19 00:01 FL video swallow Routine Hospital Course (1) Acute CVA (cerebrovascular accident): Mr. Francisco is a 64-year-old male with a past medical history of coronary artery disease, atrial fibrillation, COPD, hypertension, systolic CHF with an ejection fraction of 30-35%, cardiomyopathy and nicotine dependence admitted for acute CVA. ED course: 5mg IV Lopressor, 14mg TD nicotine patch Acute CVA: - Admitted 09/24 with examination consistent with acute ischemic CVA -> patient w/ R sided facial droop and R sided UE and LE weakness. - CT brain: no evidence of hemorrhage. ?hypodense focus within the right frontal lobe -> query artifact or a small acute infarct. - CTA head & neck: Moderate atherosclerotic plaque within the bilateral cavernous carotids and within the proximal bilateral internal carotid arteries. 60% stenosis of the proximal left internal carotid artery and 40% stenosis of the proximal right internal carotid artery. - MRI with and without contrast ordered -> small acute infarct within the posterior limb of the left internal capsule, measuring 1.5 cm. No mass effect. No acute hemorrhage. - Echo ordered without evidence of atrial thrombus or shunting. - Neurology consulted and appreciate recommendations: -> Given findings on MRI this is likely a stroke 2/2 smoking hx and significant HTN. -> Discontinue aspirin, start Plavix 75mg daily. -> Control HTN for goal MAP ~100, continue Eliquis (unlikely to be Eliquis failure given findings on MRI), encourage smoking cessation, cholesterol and BSG management. - Patient failed dysphagia screen in ER, passed speech evaluation on floor and tolerated soft diet well during admission. - PT/OT/Speech evals ordered during admission. - Lipid panel ordered -> TG 116, HDL 32, LDL 111, total cholesterol 166. -> Have initiated 80mg of atorvastatin given s/p CVA. - HbA1c ordered -> 6.1%, prediabetic. BSG 107 on BMP. May benefit from starting metformin in the outpatient setting. - Stressed smoking cessation to this patient. He has 100 pack year history and has been smoking since his mid-teens. -> Daily nicotine patches. Will need follow up outpatient to help him achieve his goals of smoking cessation. - Continue PT/OT/Speech therapy. Hypertension: - Goal MAP ~100. - Cardiology consult ordered for HTN, Afib, stroke and appreciate recommendations: -> Amlodipine 5mg BID, lisinopril 10mg daily, Lasix 20mg daily. -> Likely needs CPAP at home for naps and at night, expect patient has GMAAL given significant LVH on Echo and significant HTN. -> CPAP started inpatient, will need formal sleep study at acute rehab to qualify for home CPAP. Atrial fibrillation: - Pt initially thought to be Eliquis failure 2/2 stroke, Eliquis held and Heparin gtt started to transition to warfarin. - After MRI report and discussing with Neurology this is unlikely to be 2/2 Eliquis failure, have resumed Eliquis 5mg BID and stopped Heparin and warfarin. - Telemetry shows patient in AFib no RVR. -> Continue rate control with metoprolol 100mg BID. -> Eliquis 5mg BID for anticoagulation. Carotid artery stenosis - Noted on CTA head/neck, will require continued outpatient monitoring. Chronic systolic CHF/cardiomyopathy/presumed coronary artery disease: - Follows with Dr. Bragg. - Echo in 02/2019 revealed moderate to severely reduced systolic function w/EF of 30-35%, global hypokinesis, and severe LVH. Mild AR, MR and aortic root dilatation noted as well. - Per cardio notes, pt presumed to have CAD given anterior WMA noted in September 2016. - MAP goal ~100 per Neurology, will resume Lasix as able. - Patient appears euvolemic on examination, however dry weight was listed as 106kg in 03/2019 and patient is 122kg on admission. Weight 110kg today, unclear accurate weight, likely 2/2 different measuring systems. - CXR with evidence of mild pulmonary vascular congestion. Pt w/out respiratory complaints. Nicotine dependence/COPD: - Nicotine patches ordered. - COPD noted on medical hx, but does not use inhalers or report respiratory symptoms. -> Started albuterol PRN SOB/wheezing, daily Spiriva 2 puffs. CODE STATUS: Full FEN/GI: Heart Healthy, soft diet (2) Carotid artery stenosis: (3) Chronic systolic (congestive) heart failure: (4) Cardiomyopathy: (5) CAD (coronary artery disease): (6) Hypercholesterolemia: (7) Hypertension: (8) COPD (chronic obstructive pulmonary disease): (9) Nicotine dependence: (10) Atrial fibrillation: Total Time Total Time Spent Total Time Spent (In Minutes): >30 Discharge Plan Discharge Items Patient Disposition: Transfer Inpatient Rehab Fac Reason For Visit: CVA Discharge Diagnosis: acute CVA Activity: Per Instructions section Non-emergency contact: Primary Care Provider Call non-emergency contact if: you have any medication questions and your symptoms worsen Follow-up/Referrals: Lasha Bragg MD [Physician] - (Follow up upon discharge from rehab.) Gordon Jimenes MD [Physician] - (Follow up after discharge from rehab) PCP,NO [Primary Care Provider] - Diet: Heart Healthy Addtl Attending Provider Instructions: Mr. Francisco is a 64-year-old male with a past medical history of coronary artery disease, atrial fibrillation, COPD, hypertension, systolic CHF with an ejection fraction of 30-35%, cardiomyopathy and nicotine dependence admitted for acute CVA. ED course: 5mg IV Lopressor, 14mg TD nicotine patch Acute CVA: - Admitted 09/24 with examination consistent with acute ischemic CVA -> patient w/ R sided facial droop and R sided UE and LE weakness. - CT brain: no evidence of hemorrhage. ?hypodense focus within the right frontal lobe -> query artifact or a small acute infarct. - CTA head & neck: Moderate atherosclerotic plaque within the bilateral cavernous carotids and within the proximal bilateral internal carotid arteries. 60% stenosis of the proximal left internal carotid artery and 40% stenosis of the proximal right internal carotid artery. - MRI with and without contrast ordered -> small acute infarct within the posterior limb of the left internal capsule, measuring 1.5 cm. No mass effect. No acute hemorrhage. - Echo ordered without evidence of atrial thrombus or shunting. - Neurology consulted and appreciate recommendations: -> Given findings on MRI this is likely a stroke 2/2 smoking hx and significant HTN. -> Discontinue aspirin, start Plavix 75mg daily. -> Control HTN for goal MAP ~100, continue Eliquis (unlikely to be Eliquis failure given findings on MRI), encourage smoking cessation, cholesterol and BSG management. - Patient failed dysphagia screen in ER, passed speech evaluation on floor and tolerated soft diet well during admission. - PT/OT/Speech evals ordered during admission. - Lipid panel ordered -> TG 116, HDL 32, LDL 111, total cholesterol 166. -> Have initiated 80mg of atorvastatin given s/p CVA. - HbA1c ordered -> 6.1%, prediabetic. BSG 107 on BMP. May benefit from starting metformin in the outpatient setting. - Stressed smoking cessation to this patient. He has 100 pack year history and has been smoking since his mid-teens. -> Daily nicotine patches. Will need follow up outpatient to help him achieve his goals of smoking cessation. - Continue PT/OT/Speech therapy. - Pt will need follow up with Neurology and Cardiology, and will need to establish with a primary care provider following discharge from acute rehab. Hypertension: - Goal MAP ~100. - Cardiology consult ordered for HTN, Afib, stroke and appreciate recommendations: -> Amlodipine 5mg BID, lisinopril 10mg daily, Lasix 20mg daily. -> Likely needs CPAP at home for naps and at night, expect patient has GAMAL given significant LVH on Echo and significant HTN. -> CPAP started inpatient, will need formal sleep study at acute rehab to qualify for home CPAP. Atrial fibrillation: - Pt initially thought to be Eliquis failure 2/2 stroke, Eliquis held and Heparin gtt started to transition to warfarin. - After MRI report and discussing with Neurology this is unlikely to be 2/2 Eliquis failure, have resumed Eliquis 5mg BID and stopped Heparin and warfarin. - Telemetry shows patient in AFib no RVR. -> Continue rate control with metoprolol 100mg BID. -> Eliquis 5mg BID for anticoagulation. Carotid artery stenosis - Noted on CTA head/neck, will require continued outpatient monitoring. Chronic systolic CHF/cardiomyopathy/presumed coronary artery disease: - Follows with Dr. Bragg. - Echo in 02/2019 revealed moderate to severely reduced systolic function w/EF of 30-35%, global hypokinesis, and severe LVH. Mild AR, MR and aortic root dilatation noted as well. - Per cardio notes, pt presumed to have CAD given anterior WMA noted in September 2016. - MAP goal ~100 per Neurology, will resume Lasix as able. - Patient appears euvolemic on examination, however dry weight was listed as 106kg in 03/2019 and patient is 122kg on admission. Weight 110kg today, unclear accurate weight, likely 2/2 different measuring systems. - CXR with evidence of mild pulmonary vascular congestion. Pt w/out respiratory complaints. Nicotine dependence/COPD: - Nicotine patches ordered. - COPD noted on medical hx, but does not use inhalers or report respiratory symptoms. -> Started albuterol PRN SOB/wheezing, daily Spiriva 2 puffs. CODE STATUS: Full FEN/GI: Heart Healthy, soft diet Pending Studies at Discharge: No Stand-Alone Forms: [facility] [employer] Skilled Items Patient informed of condition?: Yes DNR: No Discharge Level of Care: Acute rehab Communicable Disease: No Discharge Prognosis: Improving Lines: None Urinary Catheter: No Medications and DC Order Prescriptions: New albuterol sulfate [Ventolin HFA] 90 mcg/actuation Hfa Aerosol Inhaler 2 puff inhalation Q6H PRN (Reason: shortness of breath or wheezing) Qty: 18 RF: 0 nicotine 7 mg/24 hr Patch 24 Hour 14 mg transdermal QAM Qty: 14 RF: 0 Spiriva Respimat 2.5 mcg/actuation mist 2 puffs INH DAILY Qty: 4 RF: 0 clopidogrel 75 mg Tablet 75 mg PO QAM Qty: 30 RF: 0 amlodipine [Norvasc] 5 mg Tablet 5 mg PO BID Qty: 30 RF: 0 atorvastatin 40 mg Tablet 80 mg PO QAM Qty: 30 RF: 0 lisinopril 10 mg Tablet 10 mg PO QAM Qty: 30 RF: 0 Continued apixaban 5 mg tablet 5 mg PO Q12H Qty: 180 RF: 3 metoprolol succinate 100 mg tablet extended release 24 hr 100 mg PO QAM RF: 0 furosemide [Lasix] 20 mg tablet 20 mg PO QAM RF: 0 Discontinued aspirin [Aspirin Childrens] 81 mg Tablet,Chewable 81 mg PO QAM RF: 0 Discharge Orders: Discharge Order (Routine); Ordered 09/27/19 Ordered By: Meche Bonilla/Other Patient Handouts: Prediabetes, Stroke Sx, Stroke Dc, Stroke Risk Factors, A1C Admission Data Admit Date/Time: 09/25/19 09:13 Attending Provider: Clinton Mccollum Admit Provider: Willian Kee Primary Care Provider: PCP,NO Other Providers: Antionette Soni ; Valeriy Oscar ; Hardeep Ashby ; Ha Fajardo ; [facility] Other Interventions: Discharge Summary Assessment (RN) Last Done: 09/27/19 15:19 DC Date/Time DO NOT enter until pt leaves facility: 09/27/19 16:10 Supervising Physician Co-Signing Physician Notes I personally examined the patient and verified all rios points of history and exam, discussed case, and agree with decision making with Dr Colby. feeling up to going to rehab. happy that blood pressure better/improving. vitals noted nad heent nc at mmm breathing unlabored no accessory muscles good effort skin no rashes no pallor or icterus. ongoing slurred speech CVA - agree intracranial atherosclerosis based on MRI findings/stroke sx (as opposed to carotid stenosis related - carotid does still need followed, and as opposed to afib/cardioembolic - still needs anticoagulated) -- risk factor modifcation/secondary risk reduction, stable for rehab. otherwise as above. Resident Activity Tracking Resident Involvement: Resident Care Provided Care Provided: Adult Hospital Medicine
--- NOTE | 2019-09-27 17:40 | Billing Data ---
Date of Service September 27, 2019 Coding Level of Care Code D/C Day Management >30 mins
--- NOTE | 2019-09-27 22:40 | Billing Data ---
Date of Service September 25, 2019 Coding Level of Care Code 50895 Initial Inpt Care Lvl 3
[2019-09-28] MEDS ORDERED: ATORVASTATIN 40 MG TAB PO SCH (09:00)
== END 2019-09-27 16:10 | DRG 65 ==
LOC: ED 07:03 → SUATTDRO 09:13 → 2S 09:13